=== PATIENT | male | born 1975 | race Caucasian/White ===

== ENCOUNTER 2023-04-12 17:14 | Emergency (ER) | payer BC, SELFPAY ==
[2023-04-12 17:15] VITALS: BP 195/84; PULSE 120; RESP 18; TEMP 36.8; O2SAT 98
--- NOTE | 2023-04-12 17:18 | ECG_ITS ---
Measurements Intervals [place] Rate: 120 P: 52 PA: 130 QRS: 36 QRSD: 86 T: 14 QT: 310 QTc: 438 Interpretive Statements SINUS TACHYCARDIA NONSPECIFIC ST ABNORMALITY LOW-VOLTAGE QRS IN PRECORDIAL LEADS BORDERLINE ECG NO PREVIOUS ECG AVAILABLE FOR COMPARISON Electronically Signed On 04-13-2023 15:04:50 CDT by Josh Perez M.D.
[2023-04-12 17:36] LABS: Basophils Absolute Auto 0.1 K/mm3 (0.0-0.1); Basophils Percent Auto 1.2 % (0.2-1.2); Eosinophils Absolute Auto 0.1 K/mm3 (0-0.3); Eosinophils Percent Auto 0.9 % (0-4.4); Hematocrit 50.2 % (42.0-52.0); Hemoglobin 17.2 g/dL (14.0-18.0); Immature Granulocyte Absolute 0.02 K/mm3 (0.00-0.031); Immature Granulocyte Percent A 0.3 % (0-0.5); Lymphocytes Absolute Auto 1.91 K/mm3 (0.9-3.2); Lymphocytes Percent Auto 24.5 % (18.3-44.2); Mean Corpuscular HGB Conc 34.3 g/dl (32-36); Mean Corpuscular Hemoglobin 28.8 pg (26-34); Mean Corpuscular Volume 84.1 fl (80-100); Mean Platelet Volume 9.5 fl (7.4-10.4); Monocytes Absolute Auto 0.7 K/mm3 (0.1-0.6); Monocytes Percent Auto 8.5 % (2.6-8.5); Neutrophils Absolute Auto 5.1 K/mm3 (1.3-6.7); Neutrophils Percent Auto 64.6 % (45.5-73.1); Platelet Count Result 295 k/mm3 (150-375); Red Blood Count 5.97 M/mm3 (4.6-6.20); Red Cell Distribution Width 12.1 % (11.5-14.5); White Blood Count 7.8 K/mm3 (4.5-10.0)
[2023-04-12 17:48] LABS: Alanine Aminotransferase 32 U/L (6-50); Albumin Level 4.3 g/dL (3.5-5.1); Alkaline Phosphatase 52 U/L (38-126); Anion Gap 7 mmol/L (8-16); Aspartate Amino Transferase 26 U/L (17-59); Bilirubin,Total 0.3 mg/dL (0.2-1.3); Blood Urea Nitrogen 17 mg/dL (9-20); Calcium 9.1 mg/dL (8.4-10.2); Carbon Dioxide 27 mmol/L (22-30); Chloride 101 mmol/L (98-107); Estimated CRCL calculation 76 ml/min; Estimated Glomerular Filt Rate > 60; Glucose 118 mg/dL (65-110); Potassium 3.9 mmol/L (3.4-5.0); Sodium 135 mmol/L (137-145)
[2023-04-12 19:39] VITALS: BP 147/75; PULSE 99; RESP 18; O2SAT 98
--- NOTE | 2023-04-12 20:19 | ED.GENADULT ---
HPI - General Adult General Chief complaint: Recheck/Abnormal Lab/Rx Stated complaint: abnormal calcium and potassium Time Seen by Provider: 04/12/23 19:45 History of Present Illness HPI narrative: This is a 47-year-old type 1 diabetic sent in by his primary care physician for abnormal labs. One week ago the patient had screening lab work that showed a potassium of 7.2 and calcium of 5.5. Patient had no symptoms at that time. Patient try to get and sees primary care physician but his physician is no longer in his hospital network. He was then told to come to the ER to be evaluated. Patient has no complaints this time. He is compliant with his insulin. Related Data Home Medications Medication Instructions Recorded Confirmed atorvastatin 10 mg tablet 10 mg PO DAILY 05/12/22 05/12/22 insulin glargine 100 unit/mL (3 20 unit subcut BID 05/12/22 05/12/22 mL) subcutaneous pen (Lantus Solostar U-100 Insulin) insulin lispro 100 unit/mL 1 sliding scale dose subcut 05/12/22 05/12/22 subcutaneous pen (Humalog KwikPen USEASDIRECTD (U-100) Insulin) olmesartan 20 1 tablet PO DAILY 05/12/22 05/12/22 mg-hydrochlorothiazide 12.5 mg tablet Allergies Allergy/AdvReac Type Severity Reaction Status Date / Time No Known Allergies Allergy Verified 04/12/23 17:17 [facility] Past Medical History Medical History Diabetes Hypertension Family History Family History Father Diabetes mellitus Hypertension Cerebrovascular accident Daughter Diabetes mellitus Sibling Thyroid disorder Social History Social History Smoking status: Never smoker Alcohol intake: never Substance use: never Living arrangements: with family Occupation/Education: occupation Additional occupation/education comments: [employer] Ex[employer] Narrative: APPEARANCE: No apparent distress. pleasant polite Head: atraumatic. EYES: EOMI, NOSE: Atraumatic NECK: Trachea midline RESPIRATORY: No increased rate of breathing, CTAB CARDIOVASCULAR: RRR, no peripheral edema ABDOMINAL: Non-distended soft nontender MUSCULOSKELETAl: No obvious deformities NEURO: Alert. Moving 4/4 extremities SKIN:: Warm, dry. Normal color PSYCHIATRIC: Normal affect Course Vital Signs Vital signs: Vital Signs Temperature 98.2 F 04/12/23 17:15 Pulse Rate 120 H 04/12/23 17:15 Respiratory Rate 18 04/12/23 17:15 Blood Pressure 195/84 H 04/12/23 17:15 Pulse Oximetry 98 04/12/23 17:15 Temperature 98.2 F 04/12/23 17:15 Pulse Rate 99 04/12/23 19:39 Respiratory Rate 18 04/12/23 19:39 Blood Pressure 147/75 H 04/12/23 19:39 Pulse Oximetry 98 04/12/23 19:39 Oxygen Delivery Room Air 04/12/23 19:39 Medical Decision Making MDM Narrative Medical decision making narrative: -Presentation: 47-year-old male presenting for abnormal labs. Repeat lab work here was normal. Patient has stable vital signs and no complaints. Patient be discharged primary care follow-up. 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 Vital Signs Vital Signs: Vital Signs Temperature 98.2 F 04/12/23 17:15 Pulse Rate 120 H 04/12/23 17:15 Respiratory Rate 18 04/12/23 17:15 Blood Pressure 195/84 H 04/12/23 17:15 Pulse Oximetry 98 04/12/23 17:15 Temperature 98.2 F 04/12/23 17:15 Pulse Rate 99 04/12/23 19:39 Respiratory Rate 18 04/12/23 19:39 Blood Pressure 147/75 H 04/12/23 19:39 Pulse Oximetry 98 04/12/23 19:39 Oxygen Delivery
== END 2023-04-12 20:32 | disposition home or self-care (01) ==
PROVIDERS: Emergency Medicine; Emergency Provider Emergency Medicine; PCP Internal Medicine
DX: E11.9 Type 2 diabetes mellitus without complications (principal); I10 Essential (primary) hypertension; Z79.4 Long term (current) use of insulin
CPT/HCPCS: 36415; 80053; 85025; 93005; 99283

== ENCOUNTER 2024-02-13 15:34 | Outpatient (CLI) | payer BC, SELFPAY ==
[2024-02-13 16:11] LABS: Basophils Absolute Auto 0.1 K/mm3 (0.0-0.1); Eosinophils Absolute Auto 0.1 K/mm3 (0-0.3); Eosinophils Percent Auto 1.3 % (0-4.4); Hematocrit 45.3 % (42.0-52.0); Hemoglobin 15.6 g/dL (14.0-18.0); Immature Granulocyte Absolute 0.01 K/mm3 (0.00-0.031); Immature Granulocyte Percent A 0.2 % (0-0.5); Lymphocytes Absolute Auto 1.52 K/mm3 (0.9-3.2); Lymphocytes Percent Auto 24.5 % (18.3-44.2); Mean Corpuscular HGB Conc 34.4 g/dl (32-36); Mean Corpuscular Hemoglobin 29.3 pg (26-34); Mean Platelet Volume 9.7 fl (7.4-10.4); Monocytes Absolute Auto 0.5 K/mm3 (0.1-0.6); Monocytes Percent Auto 8.4 % (2.6-8.5); Neutrophils Percent Auto 64.6 % (45.5-73.1); Platelet Count Result 256 k/mm3 (150-375); Red Blood Count 5.33 M/mm3 (4.6-6.20); Red Cell Distribution Width 12.1 % (11.5-14.5); White Blood Count 6.2 K/mm3 (4.5-10.0)
[2024-02-13 16:46] LABS: Alanine Aminotransferase 33 U/L (6-50); Albumin Level 3.7 g/dL (3.5-5.1); Alkaline Phosphatase 56 U/L (38-126); Anion Gap 6 mmol/L (4-12); Aspartate Amino Transferase 27 U/L (17-59); Bilirubin,Total 0.3 mg/dL (0.2-1.3); Blood Urea Nitrogen 20 mg/dL (9-20); Calcium 8.7 mg/dL (8.4-10.2); Carbon Dioxide 25 mmol/L (22-30); Chloride 100 mmol/L (98-107); Estimated Glomerular Filt Rate 58; Glucose 267 mg/dL (65-110); Potassium 4.4 mmol/L (3.4-5.0); Sodium 131 mmol/L (137-145)
[2024-02-13 16:52] LABS: Immunoglobulin A 111 mg/dL (70-400); Immunoglobulin G 488 mg/dL (700-1600); Immunoglobulin M 61 mg/dL (40-230)
[2024-02-15 02:29] LABS: Protein, Total 5.6 g/dL (6.1-8.1)
[2024-02-15 12:43] LABS: Albumin 3.6 g/dL (3.8-4.8); Alpha 1 Globulin 0.3 g/dL (0.2-0.3); Alpha 2 Globulin 0.6 g/dL (0.5-0.9); Beta 1 Globulin 0.4 g/dL (0.4-0.6); Gamma Globulin 0.5 g/dL (0.8-1.7)
== END 2024-02-13 15:35 | disposition home or self-care (01) ==
PROVIDERS: PCP Internal Medicine; Visit Provider Internal Medicine Hematology & Oncology
DX: D80.1 Nonfamilial hypogammaglobulinemia (principal)
CPT/HCPCS: 36415; 80053; 82784; 83883; 84155; 84165; 85025

== ENCOUNTER 2024-11-16 15:20 | Outpatient (CLI) | payer BC, SELFPAY ==
--- OUTSIDE RECORDS SUMMARY | 2024-11-16 15:25 | XMS_ITS | Clinical Summary ---
Author Organization [facility] Address [address] [place] [id number] Care Team Providers Care Piledriver Carpenter Name Role Phone Lex Zacarias MD Primary Care Provide r Allergies No known active allergies Medications azelastine (ASTELIN) 137 mcg (0.1 %) nasal spray Administer 1 spray into each nostril 2 (two) times a day Use in each nostril as directed 30 mL 2 04/27/20 21 Active montelukast (SINGULAIR) 10 mg tablet Take 1 tablet (10 mg total) by mouth nightly 90 tablet 4 06/02/20 23 Active blood glucose diagnostic (glucose blood) strip To check glucose 5x daily with insulin use 450 each 3 07/18/20 23 Active insulin syringe-needle U-100 (BD Insulin Syringe Ultra-Fine) 1 mL 30 gauge x 1/2 syringe For use 5x daily with insulin 450 each 3 07/18/20 23 Active cetirizine (ZyrTEC) 10 mg tablet Take 1 tablet (10 mg total) by mouth daily 06/24/20 22 Active sildenafiL (VIAGRA) 50 mg tablet 09/01/19 24 Active atorvastatin (LIPITOR) 10 mg tablet TAKE 1 TABLET DAILY 90 tablet 3 01/02/20 24 Active Additional Information Patient taking differently: 40 mg oral Daily, Reported on 11/08/2024 glucagon (Gvoke HypoPen 2-Pack) 1 mg/0.2 mL auto-injector USE DIRECTED FOR LOW BLOOD SUGARS 0.4 mL 1 03/12/20 24 Active blood-glucose sensor (FreeStyle Dagoberto 3 Sensor) device 1 Units every 14 (fourteen) days 6 each 3 05/10/20 24 Active insulin syringe-needle U-100 (BD Insulin Syringe Ultra-Fine) 0.5 mL 30 gauge x 1/2 syringe For use with insulin 4x daily 400 each 2 06/20/20 24 Active blood-glucose sensor device DAGOBERTO 3+ - Use 1 unit every 14 days 6 each 3 07/12/20 24 Active ergocalciferol (VITAMIN D) 50,000 unit capsule TAKE 1 CAPSULE BY MOUTH 1 TIME A WEEK 13 capsule 3 07/29/20 24 Active olmesartan-hyd rochlorothiazi de (BENICAR HCT) 20-12.5 mg per tablet TAKE 1 TABLET DAILY 90 tablet 1 11/06/19 25 Active HumaLOG 100 unit/mL vial for injection INJECT UNDER THE SKIN THREE TIMES DAILY WITH MEALS PER SLIDING SCALE. USE UP TO 100 UNITS PER DAY 90 mL 2 11/06/19 25 Active semaglutide (WEGOVY) 0.25 mg/0.5 mL auto-injector Inject 0.25 mg under the skin every 7 days 2 mL 11/09/19 25 Active insulin glargine (SEMGLEE) 100 unit/mL vial for injection Inject 100 Units under the skin nightly 90 mL 3 11/09/19 25 026 Active sulfamethoxazo le-trimethopri m (BACTRIM DS) 800-160 mg per tablet Take 1 tablet by mouth 2 (two) times a day for 14 days 28 tablet 11/09/19 25 025 Active mupirocin (BACTROBAN) 2 % ointment Apply topically 3 (three) times a day 22 g 11/09/19 25 Active olmesartan-hyd rochlorothiazi de (BENICAR HCT) 20-12.5 mg per tablet TAKE 1 TABLET DAILY 90 tablet 3 08/31/19 24 025 Discontinued lifitegrast (Xiidra) 5 % dropperette 0.1 each (1 drop total) 2 (two) times a day 025 Discontinued(T herapy completed) HumaLOG 100 unit/mL vial for injection INJECT UNDER THE SKIN THREE TIMES DAILY WITH MEALS CALCULATED BY SLIDING SCALE UP TO 100 UNITS PER DAY 90 mL 2 02/10/20 24 025 Discontinued semaglutide (WEGOVY) 0.25 mg/0.5 mL auto-injector Inject 0.5 mL (0.25 mg total) under the skin every 7 days 2 mL 05/10/20 24 025 Discontinued(T herapy completed) insulin glargine 100 unit/mL vial for injection Inject 80 Units under the skin nightly 025 Discontinued Active Problems Problem Noted Date Diagnosed Date Open abdominal wall wound 11/08/2024 Assessment & Plan (11/08/2024 3:40 PM CDT): Bactrim DS BID x 14d Topical Bactroban BID x 1 week, then Medihoney daily until healed Hibiclens wash daily (continue, this he has been doing) He is to communicate with us if not improving Hypoproteinemia 01/02/2024 Erectile dysfunction 08/31/2023 Eczema 12/07/2022 Seasonal allergic rhinitis 12/07/2022 Vitamin D deficiency 12/07/2022 Type 1 diabetes mellitus without complication Assessment & Plan (11/08/2024 3:32 PM CDT): A1C 8.4% Continue glargine 80 units AC continue ICR 1:4 with breakfast/dinner, 1:3 with lunch Continue Dagoberto CGM- have me review in 2 weeks Will retrial Wegovy, he is going to let me know in 2 weeks if he obtained Assessment & Plan (05/10/2024 3:51 PM CDT): A1C 8.5% Continue 70 units basal HS and S/S Continue CGM Labs UTD Is on statin and ARB Will trial Wegovy for weight loss as it appears covered, we discussed communicating with third dose for increase and Dagoberto review Assessment & Plan (11/07/2023 3:25 PM CDT): A1C 8.1% Continue 70 units of semeglee nightly ICR 1:4, add ISF 25 for >150 Labs today Eye exam today November 2023 Assessment & Plan (04/25/2023 3:49 PM CDT): A1C 8.3% Labs due October 2022 Eye exam 11/2022 with mild NPDR Is on 70 units basal, ICR 1:4, will work on entering bolus insulin and have us review dagoberto in 2 weeks Continue CGM Assessment & Plan (11/08/2022 9:31 AM CDT): A1C 7.9% Labs today Eye exam later this month Is on 4 injections daily, 70u basal and 1:4 ICR with 3 meals daily Assessment & Plan (07/09/2022 11:17 AM SAFE DEPOSIT CLERK): A1C 7.6%, not at goal CGM reviewed, encouraged to bolus with first bite of meals Dagoberto 3 sensor x 1 given today to avoid having to scan as this has been an obstacle, will attempt to fill at [facility] Current on eye exam Labs due October 2021 Is on ARB and statin We reviewed protocol for colonoscopy Assessment & Plan (04/27/2021 4:00 PM CDT): A1C 7.1% today, stable Current on eye exam Labs due Sep 2020, including microalbumin Link Dagoberto and notify us to review monthly Assessment & Plan (01/19/2021 2:13 PM CDT): A1C 7.1% today Current on eye exam Had labs last visit, will need microalbumin at next visit Reviewed low treatment and ensured patient had treatment options on hand at home Essential hypertension 10/06/2020 Mixed hyperlipidemia 10/06/2020 Overview (10/06/2020): Same meds Dystrophia unguium 02/18/2020 Sensorineural hearing loss (SNHL) of both ears 1 08/31/2016 Resolved Problems Problem Noted Date Diagnosed Date Resolved Date Nasal congestion 06/03/2021 07/09/2022 Facial pressure 06/03/2021 07/09/2022 Facial swelling 06/03/2021 07/09/2022 Dysfunction of both eustachian tubes 04/27/2021 07/09/2022 Assessment & Plan (04/27/2021 4:01 PM CDT): Add azelastine BID Continue flonase/Zyrtec daily Sensation of plugged ear 07/04/2017 Hearing loss 06/28/2017 07/09/2022 Encounters Date Type Department Care Team Description 11/09/2024 Telephone [facility] [address] [place] [address] Mari Anthony, GABRIELLE PA FOR WEGOVY 0.25MG (FELIX NIKI ([place]: BBMRNCVK)/Wegovy 0.25MG/0.5ML auto-injectors/) 11/08/2024 3:15 PM CDT Office Visit [facility] [place] [address] Mari Anthony, GABRIELLE Type 1 diabetes mellitus without complication (HCC) (Primary Dx); Vitamin D deficiency; Prostate cancer screening; Open wound of abdominal wall, subsequent encounter from Last 3 Months Immunizations Immunization Administration Dates Next Due Influenza, Quadrivalent, Spl it, Preservative Free, Intramuscular 07/01/2021,06/10/2020 Tdap 09/24/2012 Surgical History Surgery Date Site/Laterality Comments REFRACTIVE SURGERY LASIK FLUORO GUIDED INJECTION SHOULDER RIGHT 10/20/2021 [facility] Medical History Medical History Date Comments Personal history of other en docrine, nutritional and metabolic disease History of diabetes mellitus - (Added by ZECHARIAH Conv) Personal history of other di seases of the circulatory system History of hypertension - (A dded by ZECHARIAH Dawson) Hypercholesteremia Hypertension Diabetes mellitus type I (HCC) 1982 Family History Medical History Relation Name Comments Arthritis Father Cancer Father Clotting disorder Father Diabetes Father Heart disease Father Hypertension Father Stroke Father Clotting disorder Mother Heart disease Mother Hypertension Mother Kidney disease Mother Relation Name Status Comments Father Mother Social History Tobacco Use Types Packs/Day Years Used Date Smoking Tobacco: Never Smokeless Tobacco: Never Tobacco Cessation:Counseling Given: Not Answered Alcohol Use Standard Drinks/Week Comments No 0 (1 standard drink = 0.6 oz pur e alcohol) Sex and Gender Information Value Date Recorded Sex Assigned at Not on file Legal Sex Male 8:11 PM SAFE DEPOSIT CLERK Gender Identity Not on file Sexual Orientation Not on file Obstetrics History Last Filed Vital Signs Vital Sign Reading Time Taken Comments Blood Pressure 120/66 11/08/2024 3:08 PM CDT Pulse 106 11/08/2024 3:08 PM CDT Temperature - - Respiratory Rate 16 10/20/2021 3:40 PM SAFE DEPOSIT CLERK Oxygen Saturation 95% 11/08/2024 3:08 PM CDT Inhaled Oxygen Concentration - - Weight 98.4 kg (217 lb) 11/08/2024 3:08 PM CDT Height 175.3 cm (5' 9 ) 11/08/2024 3:08 PM CDT Body Mass Index 32.05 11/08/2024 3:08 PM CDT Plan of Treatment Health Maintenance Due Date Last Done Comments Colon Cancer Screening-Colonoscopy 1973 Depression Screening 1973 Hepatitis C Screening 1973 Dilated Eye Exam 1983 Hepatitis B Screening 1991 Regular Well Visit/Exam 18-64 1991 Pneumococcal vaccine <65 (1 of 2 - PCV) 1992 DTaP/Tdap/Td Vaccine (2 - Td or Tdap) 09/24/2022 09/24/2012 Zoster Vaccine (1 of 2) 2023 Foot Exam 11/09/2023 11/08/2022 Covid-19 Vaccine (4 - 2023-2 5 season) 2024 06/03/2021, 11/21/2020, 10/24/2020 Influenza Vaccine (#1) 2024 2, 07/01/2021, 06/10/2020 Albumin Creatinine Ratio, Urine 11/06/2024 4, 11/08/2022 TSH Level 11/06/2024 11/07/2023, 10/27, 10/29/2021, Additional history exists eGFR 11/06/2024 11/07/2023, 10/27, 10/29/2021, Additional history exists Hemoglobin A1C 05/11/2025 11/08/2024, 04/29, 11/07/2023, Additional history exists Prostate Cancer Screening-PSA 11/06/2025 11/07/2023 Lipid Panel 11/08/2025 11/08/2024, 0308/2023, 07/09/2022, Additional history exists Procedures Procedure Name Priority Date/Time Associated Diagnosis Comments POCT LIPID PANEL Routine 11/08/2024 3:12 PM CDT Type 1 diabetes mellitus without complication (HCC) POCT HEMOGLOBIN A1C Routine 11/08/2024 3 :12 PM CDT Type 1 diabetes mellitus without complication (HCC) POCT GLUCOSE 38712 Routine 11/08/2024 3: 12 PM CDT Type 1 diabetes mellitus without complication (HCC) COMPREHENSIVE METABOLIC PANEL Routine 11/07/2023 3:47 PM CDT Type 1 diabetes mellitus without complication (HCC) ALBUMIN CREATININE RATIO, URINE Routine 11/07/2023 3:47 PM CDT Type 1 diabetes mellitus without complication (HCC) THYROID FUNCTION CASCADE Routine 11/07/2023 3:47 PM CDT Type 1 diabetes mellitus without complication (HCC) PSA SCREEN Routine 11/07/2023 3:47 PM CDT Prostate cancer screening from Last 3 Months or Most Recently Relevant to Health Maintenance Results * POCT glucose (11/08/2024 3:12 PM CDT) Glucose Blood, POC 252 mg/dL Blood 11/08/2024 3:12 PM CDT us Mari Anthony NP POINT OF CARE TEST ORDER TIEN Final Result * POCT hemoglobin A1c (11/08/2024 3:12 PM CDT) Hemoglobin A1C, POC 8.4 4.0 - 5.6 % Blood 11/08/2024 3:12 PM CDT us Mari Anthony NP POINT OF CARE TEST ORDER TIEN Final Result * POCT lipid panel (11/08/2024 3:12 PM CDT) HDL, POC 38 mg/dL Triglycerides, POC 163 mg/dL LDL Cholesterol POC 88 mg/dL Chol/HDL Ratio, POC 4.1 Non-HDL Cholesterol, POC 120 mg/dL Cholesterol Total, POC 158 mg/dL Capillary blood 11/08/2024 3 :12 PM CDT Mari Anthony NP POINT OF CARE TEST ORDER TIEN Final Result * Thyroid Function [place] (11/07/2023 3:47 PM CDT) Pathologist [facility] TSH 1.880 0.450 - 4.500 uIU/mL [facility] - 01 Comment: No apparent thyroid disorder. Additional testing not indicated. In rare instances, Secondary Hypothyroidism as well as Subclinical Hypothyroidism have been reported in some patients with normal TSH values. Blood 11/07/2023 3:47 PM CDT 11/07/2023 Narrative [facility] - 11/08/2023 12:11 PM CDT Performed at: [address] [place] [id number] Digital Art Director: Matty Patiño PhD, Phone: [phone] Mari Anthony PIPE COVERER HELPER LAB BLOOD ORDERABLES Fin al Result [facility] - 01 * PSA screen (11/07/2023 3:47 PM CDT) Pathologist [facility] PSA 0.2 0.0 - 4.0 ng/mL [facility] - 01 Comment: Mj ECLIA methodology. According to the [place] [employer], Serum PSA should decrease and remain at undetectable levels after radical prostatectomy. The AUA defines biochemical recurrence as an initial PSA value 0.2 ng/mL or greater followed by a subsequent confirmatory PSA value 0.2 ng/mL or greater. Values obtained with different assay methods or kits cannot be used interchangeably. Results cannot be interpreted as absolute evidence of the presence or absence of malignant disease. Blood 11/07/2023 3:47 PM CDT 11/07/2023 Narrative [facility] - 11/08/2023 12:11 PM CDT Performed at: [address] [place] [id number] Digital Art Director: Matty Patiño PhD, Phone: [phone] us Mari Anthony PIPE COVERER HELPER LAB BLOOD ORDERABLES Fin al Result Performing Organization Address [facility] Co de Phone Number [facility] - * Albumin Creatinine Ratio, Urine (11/07/2023 3:47 PM CDT) Creatinine ur 191.6 Not Estab. mg/dL [facility] - 01 Microalbumin, ur <3.0 Not Estab. ug/mL [facility] - 01 Microalbumin/cre at ratio <2 0 - 29 mg/g creat [facility] - 01 Comment: Normal: 0 - 29 Moderately increased: 30 - 300 Severely increased: >300 Urine 11/07/2023 3:47 PM CDT 11/07/2023 Narrative [facility] - 11/08/2023 12:11 PM CDT Performed at: [address] [id number] Digital Art Director: Matty Patiño PhD, Phone: [phone] us Mari Anthony NP LAB URINE ORDERABLES Fin al Result Performing Organization Address [facility] Co de Phone Number [facility] - * (ABNORMAL) Comprehensive metabolic panel (11/07/2023 3:47 PM CDT) Glucose 125(H) 70 - 99 mg/dL [facility] - 01 BUN 18 6 - 24 mg/dL [facility] - 01 Creatinine, Serum 1.37(H) 0.76 - 1.27 mg/dL [facility] - 01 eGFR 63 >59 mL/min/1.7 3 [facility] - 01 BUN/creat ratio 13 9 - 20 [facility] - 01 Sodium 136 134 - 144 mmol/L [facility] - 01 Potassium, sr 4.5 3.5 - 5.2 mmol/L [facility] - 01 Chloride 99 96 - 106 mmol/L [facility] - 01 CO2 24 20 - 29 mmol/L [facility] - 01 Calcium 10.4(H) 8.7 - 10.2 mg/dL [facility] - 01 Protein, sr 6.6 6.0 - 8.5 g/dL [facility] - 01 Albumin 4.4 4.1 - 5.1 g/dL [facility] - 01 Globulin, Total 2.2 1.5 - 4.5 g/dL [facility] - 01 A/G Ratio 2.0 1.2 - 2.2 [facility] - 01 Bilirubin, Total 0.3 0.0 - 1.2 mg/dL [facility] - 01 Alk phos 63 44 - 121 IU/L [facility] - 01 AST 14 0 - 40 IU/L [facility] - 01 ALT 27 0 - 44 IU/L [facility] - 01 Blood 11/07/2023 3:47 PM CDT 11/07/2023 Narrative [facility] - 11/08/2023 12:11 PM CDT Performed at: [facility] [place] [id number] Digital Art Director: Matty Patiño PhD, Phone: [phone] Mari Anthony PIPE COVERER HELPER LAB BLOOD ORDERABLES Fin al Result Performing Organization Address City/State/[facility] Co de Phone Number [facility] - 01 from Last 3 Months or Most Recently Relevant to Health Maintenance Insurance [facility] CHOICE PLUS BLUE ACC CHOICE OOS Care Teams Piledriver Carpenter Relationship Specialty Start Date End Date Lex Zacarias MD [address] [facility] [address] [place] [address] PCP - General Internal Medicine 07/09/22
--- OUTSIDE RECORDS SUMMARY | 2024-11-16 15:25 | XMS_ITS | Referral Summary ---
Author Organization [facility] Address [address] [place] [address] Care Team Providers Care Cork Compounder Name Role Phone Lex Zacarias MD Primary Care Provide r Encounters Date Type Department Care Team Description 11/09/2024 Telephone [facility] [address] [facility] [address] [place] [address] Mari Anthony NP PA FOR WEGOVY 0.25MG (FELIX NIKI ([place]: [id number])/Wegovy 0.25MG/0.5ML auto-injectors/) 11/08/2024 3:15 PM CDT Office Visit [facility] [address] [facility] [address] [place] [address] Mari Anthony NP Type 1 diabetes mellitus without complication (HCC) (Primary Dx); Vitamin D deficiency; Prostate cancer screening; Open wound of abdominal wall, subsequent encounter from Last 3 Months Allergies No known active allergies Medications azelastine [...] me review in 2 weeks Will retrial Jeff, he is going to let me know [...] daily Assessment & Plan (07/09/2022 11:17 AM POISING INSPECTOR): A1C 7.6%, not at goal CGM reviewed, [...] plugged ear 07/04/2017 Hearing loss 06/28/2017 07/09/2022 Immunizations Immunization Administration Dates Next Due Influenza, Quadrivalent, Spl it, Preservative Free, Intramuscular 07/01/2021,06/10/2020 Tdap 09/24/2012 Social History Tobacco Use Types Packs/Day Years Used Date Smoking Tobacco: Never Smokeless Tobacco: Never Tobacco Cessation:Counseling Given: Not Answered Alcohol Use Standard Drinks/Week Comments No 0 (1 standard drink = 0.6 oz pur e alcohol) Sex and Gender Information Value Date Recorded Sex Assigned at Not on file Legal Sex Male 8:11 PM POISING INSPECTOR Gender Identity Not on file Sexual Orientation Not on file Last Filed Vital Signs Vital Sign Reading Time Taken Comments Blood Pressure 120/66 11/08/2024 3:08 PM CDT Pulse 106 11/08/2024 3:08 PM CDT Temperature - - Respiratory Rate 16 10/20/2021 3:40 PM POISING INSPECTOR Oxygen Saturation 95% 11/08/2024 3:08 PM CDT Inhaled Oxygen Concentration - - Weight 98.4 kg (217 lb) 11/08/2024 3:08 PM CDT Height 175.3 cm (5' 9 ) 11/08/2024 3:08 PM CDT Body Mass Index 32.05 11/08/2024 3:08 PM CDT Plan of Treatment Not on file Procedures Procedure Name Priority Date/Time Associated Diagnosis Comments POCT LIPID PANEL Routine 11/08/2024 3:12 PM CDT Type 1 diabetes mellitus without complication (HCC) POCT HEMOGLOBIN A1C Routine 11/08/2024 3 :12 PM CDT Type 1 diabetes mellitus without complication (HCC) POCT GLUCOSE 23432 Routine 11/08/2024 3: 12 PM CDT Type [...] 252 mg/dL Blood 11/08/2024 3:12 PM CDT Mari Anthony NP POINT OF [...] ORDER TIEN Final Result * Thyroid Function [place] (11/07/2023 3:47 PM CDT) Pathologist [facility] TSH 1.880 0.450 - 4.500 uIU/mL [facility] - 01 Comment: No apparent thyroid disorder. Additional testing not indicated. In rare instances, Secondary Hypothyroidism as well as Subclinical Hypothyroidism have been reported in some patients with normal TSH values. Blood 11/07/2023 3:47 PM CDT 11/07/2023 Narrative [facility] - 11/08/2023 12:11 PM CDT Performed at: [address] [place] [id number] Cost Estimating Clerk: Matty Patiño PhD, Phone: [phone] Mari Anthony NP LAB BLOOD ORDERABLES Fin al Result [facility] - 01 * PSA screen (11/07/2023 3:47 PM CDT) PSA 0.2 0.0 - 4.0 ng/mL [facility] - 01 Comment: Mj ECLIA methodology. According to the [employer], Serum PSA should decrease and [...] - 11/08/2023 12:11 PM CDT Performed at: [address] [place] [address] [id number] Cost Estimating Clerk: Matty Patiño PhD, Phone: [phone] us Mari Anthony DRIVER LICENSE TECHNICIAN LAB BLOOD ORDERABLES Fin al Result Performing Organization Address [facility] de Phone Number [facility] - * Albumin Creatinine Ratio, Urine [...] - 11/08/2023 12:11 PM CDT Performed at: [address] [id number] Cost Estimating Clerk: Matty Patiño PhD, Phone: [phone] us Mari Anthony DRIVER LICENSE TECHNICIAN LAB URINE ORDERABLES Fin al Result Performing Organization Address [facility] de Phone Number [facility] - * (ABNORMAL) Comprehensive metabolic panel [...] 11/08/2023 12:11 PM CDT Performed at: [facility] [place] [id number] Cost Estimating Clerk: Matty Patiño PhD, Phone: [phone] us Mari Anthony DRIVER LICENSE TECHNICIAN LAB BLOOD ORDERABLES Fin al Result Performing Organization Address City/State/[facility] Co de Phone Number [facility] - 01 from Last 3 Months or Most Recently Relevant to Health Maintenance Insurance [facility] CHOICE PLUS BLUE ACC CHOICE OOS ANTHEM ACCESS CHOICE Care Teams Cork Compounder Relationship Specialty Start Date End Date Lex Zacarias MD [address] [facility] [address] [place] [address] PCP - General Internal Medicine 07/09/22
--- OUTSIDE RECORDS SUMMARY | 2024-11-16 15:25 | XMS_ITS | Clinical Summary ---
Author Organization [facility] Address [address] [facility] [address] Care Team Providers Care Adobe Cq Developer Name Role Phone Barry Zacarias MD Primary Care Provider Allergies No known active allergies Medications atorvastatin (LIPITOR) 10 mg tablet Take 1 Tablet by mouth daily. 4 Active cetirizine (ZyrTEC) 10 mg tablet Take 10 mg by mouth daily. 2 Active insulin lispro (HumaLOG U-100 Insulin) 100 unit/mL vial INJECT UNDER THE SKIN THREE TIMES DAILY WITH MEALS CALCULATED BY SLIDING SCALE UP TO 100 UNITS PER DAY 4 Active ergocalciferol (VITAMIN D2) 50,000 unit capsule Take 50,000 Units by mouth. 4 01/04/20 25 Active olmesartan-hydr oCHLOROthiazide (BENICAR-HCT) 20-12.5 mg tablet Take 1 Tablet by mouth daily. 4 Active insulin glargine (LANTUS) 100 unit/mL injection Inject by subcutaneous injection. Active Active Problems No known active problems Encounters Date Type Department Care Team Description 11/06/2024 External Device Data [facility] ABSTRACTION Provider, Abstract 11/06/2024 External Device Data [facility] ABSTRACTION Provider, Abstract 11/03/2024 External Device Data [facility] ABSTRACTION Provider, Abstract 11/02/2024 External Device Data [facility]STRACTION Provider, Abstract 10/23/2024 External Device Data [facility] ABSTRACTION Provider, Abstract from Last 3 Months Family History Medical History Relation Name Comments Heart Disease Brother 1 Heart Disease Brother 2 No Known Problems Child 1 Diabetes Child 2 Diabetes Father Heart Disease Mother Relation Name Status Comments Brother 1 Alive Brother 2 Alive Child 1 Alive Child 2 Alive Father Mother Alive Social History Tobacco Use Types Packs/Day Years Used Date Smoking Tobacco: Never Tobacco Cessation:Counseling Given: Not Answered Alcohol Use Standard Drinks/Week Comments Never 0 (1 standard drink = 0.6 oz pur e alcohol) Sex and Gender Information Value Date Recorded Sex Assigned at Not on file Legal Sex Male 11:12 AM CDT Gender Identity Not on file Sexual Orientation Not on file Last Filed Vital Signs Vital Sign Reading Time Taken Comments Blood Pressure 110/60 02/13/2024 2:57 PM CDT Pulse 87 02/13/2024 2:57 PM CDT Temperature 36.7 C (98 F) 02/13/2024 2:57 PM CDT Respiratory Rate 16 02/13/2024 2:57 PM CDT Oxygen Saturation 95% 02/13/2024 2:57 PM CDT Inhaled Oxygen Concentration - - Weight 96.6 kg (213 lb) 02/13/2024 2:57 PM CDT Height 175.3 cm (5' 9 ) 02/13/2024 2:57 PM CDT Body Mass Index 31.45 02/13/2024 2:57 PM CDT Plan of Treatment Upcoming Encounters Date Type Department Care Team (Late st Contact Info) Description 11/27/2024 2:30 PM CDT Office Visit [facility] - [place] [address] [facility] [address] [place] [address] Milad Almendarez MD [address] [facility] [address] [place] [address] Health Maintenance Due Date Last Done Comments DIABETES ANNUAL RETINAL EXAM 1991 DIABETES MICROALBUMIN ANNUAL SCREEN 1991 LDL CHOLESTEROL ANNUAL 1991 HEPATITIS B VACCINES (1 of 3 - 19+ 3-dose series) 1992 ZOSTER VACCINE (1 of 2) 1992 COLORECTAL SCREENING 2018 Colorectal Cancer Screening 2018 FIT-DNA Q 3 years 2018 FIT/FOBT Q 1 year 2018 Flex Sig/CT Colonography Q 5 years 2018 DTAP/TDAP/TD VACCINES (2 - T d or Tdap) 09/24/2022 09/24/2012 DIABETES ANNUAL FOOT EXAM 11/09/2023 11/08/2022 INFLUENZA VACCINE (#1) 2024 2, 07/01/2021, 06/10/2020 DIABETES HBA1C Q 6 MONTHS 05/09/2024 11/07/2023 Preventative Visit- Commercial 08/29/2024 Insurance Care Teams Adobe Cq Developer Relationship Specialty Start Date End Date Barry Zacarias MD PCP - General Internal Medicine 01/24/24
--- OUTSIDE RECORDS SUMMARY | 2024-11-16 15:25 | XMS_ITS | Data Portability ---
Author Organization [place] - [facility] [employer], Main Office Address [address] [place] [address] Care Team Providers Care Transfer Professor Name Role Phone JORGE KULKARNI Sharepoint Web Developer RAPHAEL AVILES Orthopedic Surgeon BARRY ZACARIAS Primary Care Provider [phone] MILAD ALMENDAREZ Naphthalene Operator [facility] Trim Machine Operator [phone] GIGI MEYERS Stitch Marker [phone] Assessment Encounter Date Assessment Date Assessment LastModified by Organization Details LastModified Time 01/03/2024 01/03/2024 12/30/2023: A1C 8.0 Gluc 253, TP 6.0, Glob 2.0 Not available 01/02/2024 18:52:16 07/10/2024 07/10/2024 12/30/2023: A1C 8.0 Gluc 253, TP 6.0, Glob 2.0 07/06/2024: PSA 0.24 A1C 8.5 Gluc 125, Glob 2.1 Chol 218, LDL 152 H/H 17.3/50.7 Not available 07/10/2024 17:49:41 10/11/2024 10/11/2024 12/30/2023: A1C 8.0 Gluc 253, TP 6.0, Glob 2.0 07/06/2024: PSA 0.24 A1C 8.5 Gluc 125, Glob 2.1 Chol 218, LDL 152 H/H 17.3/50.7 10/09/2024: A1C 8.4 Gluc 176, TP 6.2L LDL 111 H/H16.6/48.4 Not available 10/11/2024 17:35:22 Plan of Treatment Reminders Order Date Submit Date Provider Last Modified By Organization Details Last Modified Time Details Appointments Any 15 2024 04:00P Naveen farley MD Not available Not available Not available Lab vitamin D, 25-hydrox y, total, serum [address] (Lab), [address] [place], [address], 10/11/2024 17:35:05 microalbu min, urine [address] (Lab), [address] [place], [address], 10/11/2024 17:35:05 glycohemo globin, total, blood [address] (Lab), [address] [place], [address], 10/11/2024 17:35:05 lipid panel, serum [address] (Lab), [address] [place], [address], 10/11/2024 17:35:03 TSH, serum or plasma [address] (Lab), [address] [place], [address], 10/11/2024 17:35:04 CMP, serum or plasma [address] (Lab), [address] [place], [address], 10/11/2024 17:35:04 CBC w/ auto diff [address] (Lab), [address] [place], [address], 10/11/2024 17:35:04 vitamin D, 25-hydrox y, total, serum [address] (Lab), [address] [place], [address], 07/10/2024 17:40:27 microalbu min, urine 2023 024 [facility] (Lab), [address] [place], [address], 10/09/2024 15:00:51 glycohemo globin, total, blood 2023 [facility] (Lab), [address] [place], [address], 10/09/2024 18:44:27 lipid panel, serum 2023 024 [facility] (Lab), [address] [place], [address], 10/09/2024 15:03:09 TSH, serum or plasma 2023 024 [facility] (Lab), [address] [place], [address], 10/09/2024 17:09:50 CMP, serum or plasma 2023 024 [facility] (Lab), [address] [place], [address], 10/09/2024 15:03:15 CBC w/ auto diff 2023 024 [facility] (Lab), [address] [place], [address], 10/09/2024 14:55:46 PSA, total, serum or plasma 2023 024 [facility] (Lab), [address] [place], [address], 07/06/2024 16:23:59 vitamin D, 25-hydrox y, total, serum [address] (Lab), [address] [place], [address], 07/09/2024 09:46:20 microalbu min, urine [address] (Lab), [address] [place], [address], 07/09/2024 09:47:16 glycohemo globin, total, blood 2023 024 [facility] (Lab), [address] [place], [address], 07/06/2024 21:16:24 lipid panel, serum 2023 024 [facility] (Lab), [address] [place], [address], 07/06/2024 15:48:24 TSH, serum or plasma 2023 024 [facility] (Lab), [address] [place], [address], 07/06/2024 16:23:54 CMP, serum or plasma 2023 024 [facility] (Lab), [address] [place], [address], 02/13/2024 18:03:20 CBC w/ auto diff 2023 024 [facility] (Lab), [address] [place], [address], 02/13/2024 18:03:20 vitamin D, 25-hydrox y, total, serum [email or web address] (Lab), [address] [place], [address], 02/28/2024 10:07:34 microalbu min, urine 2023 024 [facility] (Lab), [address] [place], [address], 01/02/2024 17:14:13 glycohemo globin, total, blood 2023 024 [facility] (Lab), [address] [place], [address], 12/30/2023 21:31:06 lipid panel, serum 2023 024 [facility] (Lab), [address] [place], [address], 12/30/2023 19:07:54 TSH, serum or plasma 2023 024 [facility] (Lab), [address] [place], [address], 12/30/2023 19:36:23 CMP, serum or plasma 2023 024 [facility] (Lab), [address] [place], [address], 12/30/2023 19:08:09 CBC w/ auto diff 2023 024 [facility] (Lab), [address] [place], [address], 12/30/2023 17:06:52 Referral podiatris t referral - Please call patient to schedule an appointme nt. Thank you. 2024 025 ERNESTINE Lucas DPM, [address] [place], [address], 10/12/2024 10:20:42 endocrino logy referral - Please call patient to schedule an appointme nt. Thank you. 2024 025 ERNESTINE Handy MD, [address] [place], [address], 10/12/2024 10:40:30 podiatris t referral - Please call patient to schedule. 2023 024 [email or web address] Tanisha Lucas DPM, [address] [place], [address], 10/09/2024 17:15:43 endocrino logy referral 2023 024 [email or web address] Chuy Handy MD, [address], [address] [place], [address], 07/11/2024 14:22:23 hematolog ist referral 2023 024 [email or web address] Milad Almendarez MD, [address], [place], [address], 07/11/2024 14:21:45 general surgeon referral - Please call patient to schedule. 2023 024 LATRICE Bean MD, [address] [facility] [address], [place], [address], 07/24/2024 15:35:42 podiatris t referral 2023 024 [email or web address] Tanisha Lucas DPM, [address] [place], [address], 07/09/2024 09:47:30 endocrino logy referral 2023 024 [email or web address] Chuy Handy MD, [address], [address] [place], [address], 07/09/2024 09:47:31 hematolog ist referral 2023 024 LATRICE Almendarez MD, [address], [place], [address], 02/23/2024 11:37:05 podiatris t referral 2023 024 Tanisha Lucas DP, [address] [place], [address], 08/30/2024 08:49:01 endocrino logy referral 2023 024 [email or web address] Chuy Handy MD, [address] [facility], [address] [place] [address], [address], 03/27/2024 08:40:54 Procedures None recorded. Surgeries None recorded. Imaging None recorded. Medication Orders atorvasta tin 40 mg tablet 2024 025 gem caraballo [facility][id number], [address] [place], [place], [id number], 10/19/2024 10:12:58 cephalexi n 500 mg capsule 2023 024 [facility] #[id number], [address] [place], [place], [id number], 10/11/2024 17:06:30 atorvasta tin 40 mg tablet 2023 024 [facility] #[id number], [address] [place], [place], [id number], 07/10/2024 17:40:23 cephalexi n 500 mg capsule 2023 [facility], [address] [place], [place], [id number], 10/11/2024 17:06:30 sildenafi l 50 mg tablet 2023 024 LATRICE [facility], [address] [place] [address], [place], [address], 09/01/2023 17:21:[address] 10 mg tablet 2023 024 [facility], [address] [place] [address], [address], 01/03/2024 17:10:28 Patient TargetsNo targets recorded. Patient Instructions Encounter Date Encounter Id Patient Instructions Last Modified By Organization Details Last Modified Time 09/01/2023 [id number] diabetic eye exam* LATRICE Not available 02/20/2024 07:13:14 07/10/2024 [id number] diabetic eye exam* [email or web address] Not available 07/10/2024 17:40:28 10/11/2024 [id number] diabetic eye exam* [email or web address] Not available 10/11/2024 17:35:05 Reason for Referral Inspection Manager Referral for Type 1 diabetes mellitus Referring Physician: Barry Zacarias Internal Medicine, Encounter Date: 09/01/2023 Endocrinology Referral for T ype 1 diabetes mellitus Referring Physician: Jerrica Celaya Medicine, Encounter Date: 09/01/2023 Inspection Manager Referral for Type 1 diabetes mellitus Referring Physician: Jerrica Celaya Medicine, Encounter Date: 01/03/2024 Endocrinology Referral for T ype 1 diabetes mellitus Referring Physician: Jerrica Celaya Medicine, Encounter Date: 01/03/2024 Referring Physician: Jerrica Celaya Medicine, Encounter Date: 01/03/2024 General Surgeon Referral for Folliculitis Please call patient to schedule. Referring Physician: Jerrica Celaya Medicine, Encounter Date: 07/04/2024 Inspection Manager Referral for Type 1 diabetes mellitus Please call patient to schedule. Referring Physician: Jerrica Celaya Medicine, Encounter Date: 07/10/2024 Endocrinology Referral for T ype 1 diabetes mellitus Referring Physician: Barry Zacarias Internal Medicine, Encounter Date: 07/10/2024 Referring Physician: Barry Zacarias Internal Medicine, Encounter Date: 07/10/2024 Inspection Manager Referral for Type 1 diabetes mellitus Please call patient to schedule an appointment. Thank you. Referring Physician: Barry Zacarias Internal Medicine, Encounter Date: 10/11/2024 Endocrinology Referral for T ype 1 diabetes mellitus Please call patient to schedule an appointment. Thank you. Referring Physician: Barry Zacarias Internal Medicine, Encounter Date: 10/11/2024 Results Created Date Observation Date Name Description Value Unit Range Abnormal Flag Note LastModifiedBy Organization Detail LastModifiedTime 12/30/19 24 12/30/2023 CBC/C OMPLE TE BLD COUNT W/DIF F white blood cells 5.6 x10'3 /uL 4.2-10 .8 Not Available [facility] (Lab) [address] [place], [address], 12/30/2023 17:06:52 12/30/19 24 12/30/2023 CBC/C OMPLE TE BLD COUNT W/DIF F red blood cells 5.57 x10'6 /uL 4.10-5 .80 Not Available [facility] (Lab) [address] [place], [address], 12/30/2023 17:06:52 12/30/19 24 12/30/2023 CBC/C OMPLE TE BLD COUNT W/DIF F hemoglobin 16.4 g/dL 13.2-1 7.0 Not Available [facility] (Lab) [address] [place], [address], 12/30/2023 17:06:52 12/30/19 24 12/30/2023 CBC/C OMPLE TE BLD COUNT W/DIF F hematocrit 47.7 % 39.3-5 0.0 Not Available [facility] (Lab) [address] [facility] [place], [address], 12/30/2023 17:06:52 12/30/19 24 12/30/2023 CBC/C OMPLE TE BLD COUNT W/DIF F mean red cell volume 85.6 fL 80.0-9 7.0 Not Available [facility] (Lab) [address] [facility] [place], [address], 12/30/2023 17:06:52 12/30/19 24 12/30/2023 CBC/C OMPLE TE BLD COUNT W/DIF F mean red cell hemoglobin 29.4 pg 27.0-3 3.0 Not Available [facility] (Lab) [address] [place], [address], 12/30/2023 17:06:52 12/30/19 24 12/30/2023 CBC/C OMPLE TE BLD COUNT W/DIF F mean RBC HGB concentratio n 34.4 g/dL 31.0-3 6.0 Not Available [facility] (Lab) [address] [place], [address], 12/30/2023 17:06:52 12/30/19 24 12/30/2023 CBC/C OMPLE TE BLD COUNT W/DIF F red cell distribution width 12.0 % 11.8-1 5.5 Not Available [facility] (Lab) [address] [place], [address], 12/30/2023 17:06:52 12/30/19 24 12/30/2023 CBC/C OMPLE TE BLD COUNT W/DIF F platelets 249 x10'3 /uL 150-40 0 Not Available [facility] (Lab) [address] [place], [address], 12/30/2023 17:06:52 12/30/19 24 12/30/2023 CBC/C OMPLE TE BLD COUNT W/DIF F mean platelet volume 10.5 fL 9.0-12 .4 Not Available [facility] (Lab) [address] [place], [address], 12/30/2023 17:06:52 12/30/19 24 12/30/2023 CBC/C OMPLE TE BLD COUNT W/DIF F neutrophils 58.4 % 39.0-7 2.0 Not Available [facility] (Lab) [address] [place], [address], 12/30/2023 17:06:52 12/30/19 24 12/30/2023 CBC/C OMPLE TE BLD COUNT W/DIF F lymphocytes 29.7 % 16.0-4 7.0 Not Available [facility] (Lab) [address] [place], [address], 12/30/2023 17:06:52 12/30/19 24 12/30/2023 CBC/C OMPLE TE BLD COUNT W/DIF F monocytes 8.6 % 5.0-12 .0 Not Available [facility] (Lab) [address] [place], [address], 12/30/2023 17:06:52 12/30/19 24 12/30/2023 CBC/C OMPLE TE BLD COUNT W/DIF F eosinophils 2.0 % 1.0-7. 0 Not Available [facility] (Lab) [address] [place], [address], 12/30/2023 17:06:52 12/30/19 24 12/30/2023 CBC/C OMPLE TE BLD COUNT W/DIF F basophils 1.1 % 0.0-2. 0 Not Available [facility] (Lab) [address] [place], [address], 12/30/2023 17:06:52 12/30/19 24 12/30/2023 CBC/C OMPLE TE BLD COUNT W/DIF F immature granulocytes 0.2 % 0.00-0 .50 Not Available [facility] (Lab) [address] [place], [address], 12/30/2023 17:06:52 12/30/19 24 12/30/2023 CBC/C OMPLE TE BLD COUNT W/DIF F neutrophils, absolute count 3.27 x10'3 /uL 1.5-8. 0 Not Available [facility] (Lab) [address] [place], [address], 12/30/2023 17:06:52 12/30/19 24 12/30/2023 CBC/C OMPLE TE BLD COUNT W/DIF F lymphocytes, absolute count 1.66 x10'3 /uL 1.07-3 .43 Not Available [facility] (Lab) [address] [place], [address], 12/30/2023 17:06:52 12/30/19 24 12/30/2023 CBC/C OMPLE TE BLD COUNT W/DIF F monocytes, absolute count 0.48 x10'3 /uL 0.29-0 .99 Not Available [facility] (Lab) [address] [place], [address], 12/30/2023 17:06:52 12/30/19 24 12/30/2023 CBC/C OMPLE TE BLD COUNT W/DIF F eosinophils, absolute count 0.11 x10'3 /uL 0.02-0 .53 Not Available [facility] (Lab) [address] [place], [address], 12/30/2023 17:06:52 12/30/19 24 12/30/2023 CBC/C OMPLE TE BLD COUNT W/DIF F basophils, absolute count 0.06 x10'3 /uL 0.01-0 .08 Not Available [facility] (Lab) [address] [place], [address], 12/30/2023 17:06:52 12/30/19 24 12/30/2023 CBC/C OMPLE TE BLD COUNT W/DIF F immature granulocytes ,absolute 0.01 x10'3 /uL 0.00-0 .05 Not Available [facility] (Lab) [address] [place], [address], 12/30/2023 17:06:52 12/30/19 24 12/30/2023 CBC/C OMPLE TE BLD COUNT W/DIF F nucleated red blood cells 0.0 % -0 Not Available [facility] (Lab) [address] [place], [address], 12/30/2023 17:06:52 12/30/19 24 12/30/2023 CBC/C OMPLE TE BLD COUNT W/DIF F NRBC# 0.00 x10'3 /uL Not Available [facility] (Lab) [address] [place], [address], 12/30/2023 17:06:52 12/30/19 24 12/30/2023 LIPID PANEL cholesterol 165 mg/dL 140-19 9 NIH ARACELI NSUS RECOM MENDA TION FOR SIRENA STERO L: ADULT CHILD LOW RISK: <200 <170 BORDE RLINE : <200- 239 ----- HIGH RISK: >240 >200 Not Available [facility] (Lab) [address] [place], [address], 12/30/2023 19:07:53 12/30/19 24 12/30/2023 LIPID PANEL triglyceride s 116 mg/dL 0-150 NIH ARACELI NSUS REPOR T RECOM MENDA TION FOR TRIGL YCERI JOY: ADULT CHILD LOW RISK: <150 ----- BODER LINE: 150-1 99 ----- HIGH RISK: >200 ----- Not Available [facility] (Lab) [address] [place], [address], 12/30/2023 19:07:53 12/30/19 24 12/30/2023 LIPID PANEL HDL cholesterol 47 mg/dL 40- Not Available [facility] (Lab) [address] [place], [address], 12/30/2023 19:07:53 12/30/19 24 12/30/2023 LIPID PANEL LDL cholesterol, calculated 95 mg/dL 0-130 NIH ARACELI NSUS REPOR T RECOM MENDA TIONS FOR LDL: ADULT CHILD LOW RISK <130 <110 (OPTI MAL LDL) <100 ----- BORDE RLINE : 130-1 59 ----- HIGH RISK: >160 >130 A TRIGL YCERI DE RESUL T >400 INVAL IDATE S THE CALCU LATIO N FOR LDL FRACT IONAT ION - THE LDL RESUL T WILL NOT BE REPOR HAYDER. Not Available [facility] (Lab) [address] [place], [address], 12/30/2023 19:07:53 12/30/19 24 12/30/2023 COMPR EHENS MERON METAB OLIC PANEL sodium 133 mmol/ L 137-14 5 low Not Available [facility] (Lab) [address] [place], [address], 12/30/2023 19:08:09 12/30/19 24 12/30/2023 COMPR EHENS MERON METAB OLIC PANEL potassium 4.4 mmol/ L 3.5-5. 1 Not Available [facility] (Lab) [address] [place], [address], 12/30/2023 19:08:09 12/30/19 24 12/30/2023 COMPR EHENS MERON METAB OLIC PANEL chloride 101 mmol/ L 98-107 Not Available [facility] (Lab) [address] [place], [address], 12/30/2023 19:08:09 12/30/19 24 12/30/2023 COMPR EHENS MERON METAB OLIC PANEL carbon dioxide 27 mmol/ L 22-30 Not Available [facility] (Lab) [address] [place], [address], 12/30/2023 19:08:09 12/30/19 24 12/30/2023 COMPR EHENS MERON METAB OLIC PANEL anion gap 9.4 mmol/ L 14-22 low Not Available [facility] (Lab) [address] [place], [address], 12/30/2023 19:08:09 12/30/19 24 12/30/2023 COMPR EHENS MERON METAB OLIC PANEL glucose 253 mg/dL 70-99 high Not Available [facility] (Lab) [address] [place], [address], 12/30/2023 19:08:09 12/30/19 24 12/30/2023 COMPR EHENS MERON METAB OLIC PANEL BUN 17 mg/dL 8-19 Not Available [facility] (Lab) [address] [place], [address], 12/30/2023 19:08:09 12/30/19 24 12/30/2023 COMPR EHENS MERON METAB OLIC PANEL creatinine 1.16 mg/dL 0.66-1 .25 Not Available [facility] (Lab) [address] [place], [address], 12/30/2023 19:08:09 12/30/19 24 12/30/2023 COMPR EHENS MERON METAB OLIC PANEL GFR >60 Refer ence Range : Bent ge GFR Healt hy Adult : >60 mL/mi n/1.7 3 m2 Chron ic Kidne y Disea se: 15-60 mL/mi n/1.7 3 m2 Kidne y Failu re: <15/m L/min /1.73 m2 www.n iddk. nih.g ov The MDRD study equat ion has not been valid ated in child natividad <18 years of age; pregn ant women ; the elder ly >85 years of age; or in some racia l or ethni c subgr oups, such as Hispa nics. Outsi de the valid ated rosalinda eters , estim ated GFR is less accur ate, requi ring clini andrea judgm ent on a case- by-ca se basis . Clini andrea inter preta tion for other races and ages must be made by the clini javy. The MDRD study equat ion has not been valid ated for the evalu ation of serum creat inine relat ed to nutri constanza l statu s or medic ation usage . For perso ns <18 years of age, a pedia tric GFR calcu lator is avail able on the [facility] websi te: https ://kiko w.kid lilliam.o rg/pr ofess ional s/kdo qi/gf r_cal culat or Not Available [facility] (Lab) [address] [place], [address], 12/30/2023 19:08:09 12/30/19 24 12/30/2023 COMPR EHENS MERON METAB OLIC PANEL alkaline phosphatase 57 U/L 38-126 Not Available [facility] (Lab) [address] [place], [address], 12/30/2023 19:08:09 12/30/19 24 12/30/2023 COMPR EHENS MERON METAB OLIC PANEL alanine aminotransfe rase 32 U/L 0-50 Not Available [facility] (Lab) [address] [place], [address], 12/30/2023 19:08:09 12/30/19 24 12/30/2023 COMPR EHENS MERON METAB OLIC PANEL aspartate aminotransfe rase 28 U/L 15-46 Not Available [facility] (Lab) [address] [place], [address], 12/30/2023 19:08:09 12/30/19 24 12/30/2023 COMPR EHENS MERON METAB OLIC PANEL bilirubin, total 0.40 mg/dL 0.20-1 .30 Not Available [facility] (Lab) [address] [place], [address], 12/30/2023 19:08:09 12/30/19 24 12/30/2023 COMPR EHENS MERON METAB OLIC PANEL calcium 9.5 mg/dL 8.4-10 .2 Not Available [facility] (Lab) [address] [place], [address], 12/30/2023 19:08:09 12/30/19 24 12/30/2023 COMPR EHENS MERON METAB OLIC PANEL total protein 6.0 g/dL 6.3-8. 2 low Not Available [facility] (Lab) [address] [place], [address], 12/30/2023 19:08:09 12/30/19 24 12/30/2023 COMPR EHENS MERON METAB OLIC PANEL albumin 4.0 g/dL 3.4-5. 0 Not Available [facility] (Lab) [address] [place], [address], 12/30/2023 19:08:09 12/30/19 24 12/30/2023 COMPR EHENS MERON METAB OLIC PANEL globulin 2.0 g/dL 2.6-4. 2 low Not Available [facility] (Lab) [address] [place], [address], 12/30/2023 19:08:09 12/30/19 24 12/30/2023 COMPR EHENS MERON METAB OLIC PANEL A/G ratio 2.0 ratio 1.0-2. 0 Not Available [facility] (Lab) [address] [place], [address], 12/30/2023 19:08:09 12/30/19 24 12/30/2023 TSH W/REF SHAYLEE FT4 TSH with reflex free T4 1.370 uIU/m L 0.465- 4.680 Not Available [facility] (Lab) [address] [place], [address], 12/30/2023 19:36:23 12/30/19 24 12/30/2023 HEMOG LOBIN A1C HA1C 8.0 % 4.0-6. 0 high Diabe sheyla Geronimoe leonela Musate fernando: <5.7% Consi stent with absen ce of diabe sheyla 5.7-6 .4% Consi stent with incre ased risk for diabe sheyla (pred iabet es) >OR=6 .5% Consi stent with diabe sheyla REFER ENCE: Diabe sheyla Care 2016, 39(Peña ppl.1 ):s13 -s22 Not Available [facility] (Lab) [address] [place], [address], 12/30/2023 21:31:06 12/30/19 24 01/02/2024 MICRO ALBUM IN RANDO M URINE microalbumin , urine <6.0 mg/L 0.0-16 .6 Not Available [facility] (Lab) [address] [place], [address], 01/02/2024 17:14:13 12/30/19 24 01/02/2024 VITAM IN D 25-HY DROXY [id number] 44.5 NG/mL 30-100 Vitam in D Statu s: Defic ient: <20 ng/mL Insuf ficie nt: 20-29 ng/mL Suffi cient : 30-10 0 ng/mL Not Available [facility] (Lab) [address] [place], [address], 01/02/2024 21:36:30 07/06/20 24 07/06/2024 CBC/C OMPLE TE BLD COUNT W/DIF F white blood cells 6.4 x10'3 /uL 4.2-10 .8 Not Available [facility] (Lab) [address] [place], [address], 07/06/2024 14:18:41 07/06/20 24 07/06/2024 CBC/C OMPLE TE BLD COUNT W/DIF F red blood cells 5.92 x10'6 /uL 4.10-5 .80 high Not Available [facility] (Lab) [address] [place], [address], 07/06/2024 14:18:41 07/06/20 24 07/06/2024 CBC/C OMPLE TE BLD COUNT W/DIF F hemoglobin 17.3 g/dL 13.2-1 7.0 high Not Available [facility] (Lab) [address] [facility] [place], [address], 07/06/2024 14:18:41 07/06/2007/06/2024 CBC/C OMPLE TE BLD COUNT W/DIF F hematocrit 50.7 % 39.3-5 0.0 high Not Available [facility] (Lab) [address] [place], [address], 07/06/2024 14:18:41 07/06/2007/06/2024 CBC/C OMPLE TE BLD COUNT W/DIF F mean red cell volume 85.6 fL 80.0-9 7.0 Not Available [facility] (Lab) [address] [place], [address], 07/06/2024 14:18:41 07/06/2007/06/2024 CBC/C OMPLE TE BLD COUNT W/DIF F mean red cell hemoglobin 29.2 pg 27.0-3 3.0 Not Available [facility] (Lab) [address] [place], [address], 07/06/2024 14:18:41 07/06/2007/06/2024 CBC/C OMPLE TE BLD COUNT W/DIF F mean RBC HGB concentratio n 34.1 g/dL 31.0-3 6.0 Not Available [facility] (Lab) [address] [place], [address], 07/06/2024 14:18:41 07/06/20 24 07/06/2024 CBC/C OMPLE TE BLD COUNT W/DIF F red cell distribution width 12.0 % 11.8-1 5.5 Not Available [facility] (Lab) [address] [place], [address], 07/06/2024 14:18:41 07/06/20 24 07/06/2024 CBC/C OMPLE TE BLD COUNT W/DIF F platelets 273 x10'3 /uL 150-40 0 Not Available [facility] (Lab) [address] [place], [address], 07/06/2024 14:18:41 07/06/20 24 07/06/2024 CBC/C OMPLE TE BLD COUNT W/DIF F mean platelet volume 9.5 fL 9.0-12 .4 Not Available [facility] (Lab) [address] [place], [address], 07/06/2024 14:18:41 07/06/20 24 07/06/2024 CBC/C OMPLE TE BLD COUNT W/DIF F neutrophils 60.5 % 39.0-7 2.0 Not Available [facility] (Lab) [address] [place], [address], 07/06/2024 14:18:41 07/06/20 24 07/06/2024 CBC/C OMPLE TE BLD COUNT W/DIF F lymphocytes 30.3 % 16.0-4 7.0 Not Available [facility] (Lab) [address] [place], [address], 07/06/2024 14:18:41 07/06/20 24 07/06/2024 CBC/C OMPLE TE BLD COUNT W/DIF F monocytes 6.9 % 5.0-12 .0 Not Available [facility] (Lab) [address] [place], [address], 07/06/2024 14:18:41 07/06/20 24 07/06/2024 CBC/C OMPLE TE BLD COUNT W/DIF F eosinophils 0.9 % 1.0-7. 0 low Not Available [facility] (Lab) [address] [place], [address], 07/06/2024 14:18:41 07/06/20 24 07/06/2024 CBC/C OMPLE TE BLD COUNT W/DIF F basophils 1.2 % 0.0-2. 0 Not Available [facility] (Lab) [address] [place], [address], 07/06/2024 14:18:41 07/06/20 24 07/06/2024 CBC/C OMPLE TE BLD COUNT W/DIF F immature granulocytes 0.2 % 0.00-0 .50 Not Available [facility] (Lab) [address] [place], [address], 07/06/2024 14:18:41 07/06/20 24 07/06/2024 CBC/C OMPLE TE BLD COUNT W/DIF F neutrophils, absolute count 3.88 x10'3 /uL 1.5-8. 0 Not Available [facility] (Lab) [address] [place], [place], [address], 07/06/2024 14:18:41 07/06/20 24 07/06/2024 CBC/C OMPLE TE BLD COUNT W/DIF F lymphocytes, absolute count 1.94 x10'3 /uL 1.07-3 .43 Not Available [facility] (Lab) [address] [place], [address], 07/06/2024 14:18:41 07/06/20 24 07/06/2024 CBC/C OMPLE TE BLD COUNT W/DIF F monocytes, absolute count 0.44 x10'3 /uL 0.29-0 .99 Not Available [facility] (Lab) [address] [place], [address], 07/06/2024 14:18:41 07/06/20 24 07/06/2024 CBC/C OMPLE TE BLD COUNT W/DIF F eosinophils, absolute count 0.06 x10'3 /uL 0.02-0 .53 Not Available [facility] (Lab) [address] [place], [address], 07/06/2024 14:18:41 07/06/20 24 07/06/2024 CBC/C OMPLE TE BLD COUNT W/DIF F basophils, absolute count 0.08 x10'3 /uL 0.01-0 .08 Not Available [facility] (Lab) [address] [place], [address], 07/06/2024 14:18:41 07/06/20 24 07/06/2024 CBC/C OMPLE TE BLD COUNT W/DIF F immature granulocytes ,absolute 0.01 x10'3 /uL 0.00-0 .05 Not Available [facility] (Lab) [address] [place], [address], 07/06/2024 14:18:41 07/06/20 24 07/06/2024 CBC/C OMPLE TE BLD COUNT W/DIF F nucleated red blood cells 0.0 % -0 Not Available [facility] (Lab) [address] [place], [address], 07/06/2024 14:18:41 07/06/20 24 07/06/2024 CBC/C OMPLE TE BLD COUNT W/DIF F NRBC# 0.00 x10'3 /uL Not Available [facility] (Lab) [address] [place], [address], 07/06/2024 14:18:41 07/06/20 24 07/06/2024 LIPID PANEL cholesterol 218 mg/dL 140-19 9 high NIH ARACELI NSUS RECOM MENDA TION FOR SIRENA STERO L: ADULT CHILD LOW RISK: <200 <170 BORDE RLINE : <200- 239 ----- HIGH RISK: >240 >200 Not Available [facility] (Lab) [address] [place], [address], 07/06/2024 15:48:24 07/06/20 24 07/06/2024 LIPID PANEL triglyceride s 66 mg/dL 0-150 NIH ARACELI NSUS REPOR T RECOM MENDA TION FOR TRIGL YCERI JOY: ADULT CHILD LOW RISK: <150 ----- BODER LINE: 150-1 99 ----- HIGH RISK: >200 ----- Not Available [facility] (Lab) [address] [place], [address], 07/06/2024 15:48:24 07/06/20 24 07/06/2024 LIPID PANEL HDL cholesterol 53 mg/dL 40- Not Available [facility] (Lab) [address] [place], [address], 07/06/2024 15:48:24 07/06/20 24 07/06/2024 LIPID PANEL LDL cholesterol, calculated 152 mg/dL 0-130 high NIH ARACELI NSUS REPOR T RECOM MENDA TIONS FOR LDL: ADULT CHILD LOW RISK <130 <110 (OPTI MAL LDL) <100 ----- BORDE RLINE : 130-1 59 ----- HIGH RISK: >160 >130 A TRIGL YCERI DE RESUL T >400 INVAL IDATE S THE CALCU LATIO N FOR LDL FRACT IONAT ION - THE LDL RESUL T WILL NOT BE REPOR HAYDER. Not Available [facility] (Lab) [address] [place], [address], 07/06/2024 15:48:24 07/06/20 24 07/06/2024 COMPR EHENS MERON METAB OLIC PANEL sodium 132 mmol/ L 137-14 5 low Not Available [facility] (Lab) [address] [place], [address], 07/06/2024 15:48:28 07/06/20 24 07/06/2024 COMPR EHENS MERON METAB OLIC PANEL potassium 4.5 mmol/ L 3.5-5. 1 Not Available [facility] (Lab) [address] [place], [address], 07/06/2024 15:48:28 07/06/20 24 07/06/2024 COMPR EHENS MERON METAB OLIC PANEL chloride 99 mmol/ L 98-107 Not Available [facility] (Lab) [address] [place], [address], 07/06/2024 15:48:28 07/06/20 24 07/06/2024 COMPR EHENS MERON METAB OLIC PANEL carbon dioxide 27 mmol/ L 22-30 Not Available [facility] (Lab) [address] [place], [address], 07/06/2024 15:48:28 07/06/20 24 07/06/2024 COMPR EHENS MERON METAB OLIC PANEL anion gap 10.5 mmol/ L 14-22 low Not Available [facility] (Lab) [address] [place], [address], 07/06/2024 15:48:28 07/06/20 24 07/06/2024 COMPR EHENS MERON METAB OLIC PANEL glucose 125 mg/dL 70-99 high Not Available [facility] (Lab) [address] [place], [address], 07/06/2024 15:48:28 07/06/20 24 07/06/2024 COMPR EHENS MERON METAB OLIC PANEL BUN 17 mg/dL 8-19 Not Available [facility] (Lab) [address] [place], [address], 07/06/2024 15:48:28 07/06/20 24 07/06/2024 COMPR EHENS MERON METAB OLIC PANEL creatinine 1.15 mg/dL 0.66-1 .25 Not Available [facility] (Lab) [address] [place], [address], 07/06/2024 15:48:28 07/06/20 24 07/06/2024 COMPR EHENS MERON METAB OLIC PANEL GFR >60 Refer ence Range : Bent ge GFR Healt hy Adult : >60 mL/mi n/1.7 3 m2 Chron ic Kidne y Disea se: 15-60 mL/mi n/1.7 3 m2 Kidne y Failu re: <15/m L/min /1.73 m2 www.n iddk. nih.g ov The MDRD study equat ion has not been valid ated in child natividad <18 years of age; pregn ant women ; the elder ly >85 years of age; or in some racia l or ethni c subgr oups, such as Delores nics. Outsi de the valid ated rosalinda eters , estim ated GFR is less accur ate, requi ring clini andrea judgm ent on a case- by-ca se basis . Clini andrea inter preta tion for other races and ages must be made by the clini javy. The MDRD study equat ion has not been valid ated for the evalu ation of serum creat inine relat ed to nutri constanza l statu s or medic ation usage . For perso ns <18 years of age, a pedia tric GFR calcu lator is avail able on the [facility] websi te: https :[email or web address] vyas.o rg/pr ofess ional s/kdo qi/gf r_cal culat or Not Available [facility] (Lab) [address] [place], [address], 07/06/2024 15:48:28 07/06/20 24 07/06/2024 COMPR EHENS MERON METAB OLIC PANEL alkaline phosphatase 52 U/L 38-126 Not Available [facility] (Lab) [address] [place], [address], 07/06/2024 15:48:28 07/06/20 24 07/06/2024 COMPR EHENS MERON METAB OLIC PANEL alanine aminotransfe rase 32 U/L 0-50 Not Available [facility] (Lab) [address] [place], [address], 07/06/2024 15:48:28 07/06/20 24 07/06/2024 COMPR EHENS MERON METAB OLIC PANEL aspartate aminotransfe rase 30 U/L 15-46 Not Available [facility] (Lab) [address] [place], [address], 07/06/2024 15:48:28 07/06/20 24 07/06/2024 COMPR EHENS MERON METAB OLIC PANEL bilirubin, total 0.50 mg/dL 0.20-1 .30 Not Available [facility] (Lab) [address] [place], [address], 07/06/2024 15:48:28 07/06/20 24 07/06/2024 COMPR EHENS MERON METAB OLIC PANEL calcium 9.5 mg/dL 8.4-10 .2 Not Available [facility] (Lab) [address] [place], [address], 07/06/2024 15:48:28 07/06/20 24 07/06/2024 COMPR EHENS MERON METAB OLIC PANEL total protein 6.5 g/dL 6.3-8. 2 Not Available [facility] (Lab) [address] [place], [address], 07/06/2024 15:48:28 07/06/20 24 07/06/2024 COMPR EHENS MERON METAB OLIC PANEL albumin 4.4 g/dL 3.4-5. 0 Not Available [facility] (Lab) [address] [place], [address], 07/06/2024 15:48:28 07/06/20 24 07/06/2024 COMPR EHENS MERON METAB OLIC PANEL globulin 2.1 g/dL 2.6-4. 2 low Not Available [facility] (Lab) [address] [place], [address], 07/06/2024 15:48:28 07/06/20 24 07/06/2024 COMPR EHENS MERON METAB OLIC PANEL A/G ratio 2.1 ratio 1.0-2. 0 high Not Available [facility] (Lab) [address] [place], [address], 07/06/2024 15:48:28 07/06/20 24 07/06/2024 VITAM IN D 25-HY DROXY vd25oh 43.9 NG/mL 30-100 Vitam in D Statu s: Defic ient: <20 ng/mL Insuf ficie nt: 20-29 ng/mL Suffi cient : 30-10 0 ng/mL Not Available [facility] (Lab) [address] [place], [address], 07/06/2024 16:19:41 07/06/20 24 07/06/2024 TSH W/REF SHAYLEE FT4 TSH with reflex free T4 2.200 uIU/m L 0.465- 4.680 Not Available [facility] (Lab) [address] [place], [address], 07/06/2024 16:23:54 07/06/20 24 07/06/2024 PSA SCREE N PSA medicare screen 0.24 NG/mL 0.00-4 .00 Not Available [facility] (Lab) [address] [place], [address], 07/06/2024 16:23:59 07/06/20 24 07/06/2024 HEMOG LOBIN A1C HA1C 8.5 % 4.0-6. 0 high Diabe sheyla Scree leonela Crite fernando: <5.7% Consi stent with absen ce of diabe sheyla 5.7-6 .4% Consi stent with incre ased risk for diabe sheyla (pred iabet es) >OR=6 .5% Consi stent with diabe sheyla REFER ENCE: Diabe sheyla Care 2016, 39(Peña ppl.1 ):s13 -s22 Not Available [facility] (Lab) [address], [place], [address], 07/06/2024 21:16:24 Result Notes None recorded. Problems Name Problem SNOMED Code Status Onset Date Resolution Date Notes Provider Name and Address Organization Details Recorded Time Hypercholeste rolemia 17092786 Active 2019 Not Available [facility] 3 02:30:53 Diabetes mellitus 10105731 Active 2019 Not Available [facility] 3 02:30:53 Dystrophia unguium 55758353 Active 2019 Not Available [facility] 3 02:30:53 Hyperlipidemi a 47379461 Active 2022 Barry mcnulty MD [address], [address] , [employer] [facility] [employer] 3 08:56:53 Essential hypertension 65462089 Active 2022 Barry mcnulty MD [address], [address] , [employer] [facility] [employer] 3 08:56:56 Type 1 diabetes mellitus 00216732 Active 2022 Barry mcnulty MD [address], [place], [address] , [employer] [facility] [employer] 3 08:57:07 Seasonal allergic rhinitis 072277510 Active 2022 Barry mcnulty MD [address], [address] , [employer] [facility] [employer] [facility] 3 08:57:22 Eczema 75498862 Active 2022 Barry mcnulty MD [address], [address] , [facility] 3 08:57:28 Vitamin D deficiency 32754346 Active 2022 Barry mcnulty MD [address], [address], [address] , [facility] 3 09:01:32 Erectile dysfunction 167888523 Active 2023 Barry mcnulty MD [address], [address], [address] , [facility] 4 17:20:41 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 2023 Barry mcnulty MD [address], [address], [address] , [facility] 4 18:54:12 Folliculitis 38412720 Active 2023 Barry mcnulty MD [address], [address], [address] , [facility] 4 17:40:11 Erythrocytosi s 310044787 Active 2023 Barry mcnulty MD [address], [address], [address] , [facility] 4 17:23:03 Cough 30881744 Active 2024 Peter Armstrong CMA null, [facility] 5 10:08:21 Acquired trigger finger 8971775 Active 2024 Barry mcnulty MD [address], [address], [address] , [facility] 5 17:17:33 Problem Notes None recorded. Medical Equipment None Reported. Allergies No known drug allergies Medications Name Sig Start Date Stop Date Status Note LastModified by Organization Details LastModified Time atorvastati n 40 mg tablet TAKE 1 TABLET BY MOUTH EVERY DAY active Not Available Not Available No t Available prednisone 10 mg tablet TAKE 3 TABLETS BY MOUTH ONCE DAILY FOR TMJ PAIN 09/01 completed Not Available Not Available Not Available sildenafil 50 mg tablet Take 1 tablet twice a week by oral route as needed for 90 days. active Not Available Not Available No t Available cetirizine 10 mg tablet TAKE 1 TABLET BY MOUTH DAILY NEEDED active Not Available Not Available No t Available atorvastati n 10 mg tablet Take 1 tablet every day by oral route. 07/10 completed Not Available Not Available Not Available meloxicam 15 mg tablet 06/24 completed Not Available Not Available Not Available Lantus U-100 Insulin 100 unit/mL subcutaneou s solution Inject 70 units every day by sub-q route for 90 days. 12/07 completed Not Available Not Available Not Available sulfamethox azole 800 mg-trimetho prim 160 mg tablet TAKE 1 TABLET BY MOUTH TWICE DAILY FOR 7 DAYS 07/04 completed Not Available Not Available Not Available peg-electro lyte solution 420 gram oral solution 12/07 completed Not Available Not Available Not Available aspirin 81 mg tablet,leigh ann yed release Take 1 tablet every day by oral route. active Not Available Not Available No t Available amoxicillin 500 mg tablet TAKE 2 TABLETS BY MOUTH IMMEDIATE LY THEN 1 TABLET EVERY 8 HOURS UNTIL ALL TAKEN 07/04 completed Not Available Not Available Not Available cyproheptad ine 4 mg tablet TAKE 1 TABLET BY MOUTH TWICE A DAY FOR 10 DAYS-TAKE ONLY NEEDED, UNTIL DIRECTED TO STOP 09/01 completed Not Available Not Available Not Available betamethaso ne valerate 0.1 % topical cream APPLY TO AFFECTED AREA TWICE A DAY NEEDED 06/24 completed Not Available Not Available Not Available Humalog U-100 Insulin 100 unit/mL subcutaneou s solution INJECT UNDER THE SKIN THREE TIMES DAILY WITH MEALS PER SLIDING SCALE. USE UP TO 100 UNITS PER DAY active Not Available Not Available No t Available Kenalog 10 mg/mL suspension for injection In office injection administe red by the provider 12/[address] [facility]: 0003- [id number] Not Available Not Available Not Available benzonatate 100 mg capsule Take 1 capsule 3 times a day by oral route for 7 days. active Not Available Not Available No t Available cephalexin 500 mg capsule Take 1 capsule twice a day by oral route for 7 days. 10/11 completed Not Available Not Available Not Available prednisone 50 mg tablet TAKE 1 TABLET BY MOUTH EVERY DAY FOR 7 DAYS 06/24 completed Not Available Not Available Not Available montelukast 10 mg tablet Take 1 tablet every day by oral route for 90 days. 01/02 completed Not Available Not Available Not Available ergocalcife rol (vitamin D2) 1,250 mcg (50,000 unit) capsule TAKE 1 CAPSULE BY MOUTH 1 TIME A WEEK active Not Available Not Available No t Available methylpredn isolone 4 mg tablets in a dose pack TAKE 6 TABLETS ON DAY 1 DIRECTED ON PACKAGE AND DECREASE BY 1 TAB EACH DAY FOR A TOTAL OF 6 DAYS 06/24 completed Not Available Not Available Not Available Laxative (bisacodyl) 5 mg tablet 12/07 completed Not Available Not Available Not Available olmesartan 20 mg-hydrochl orothiazide 12.5 mg tablet Take 1 tablet every day by oral route. active Not Available Not Available No t Available atorvastati n 08/07 completed Not Available Not Available Not Available Lantuss-For te 12/07 completed Not Available Not Available Not Available olmesartan 08/07 completed Not Available Not Available Not Available BD Insulin Syringe 01/02 completed Not Available Not Available Not Available lidocaine (PF) 10 mg/mL (1 %) injection solution In office injection administe red by the provider 12/[address] [facility]: 0409- 4276- 17 Not Available Not Available Not Available BD Insulin Syringe Ultra-Fine 1 mL 30 gauge x 1/2 USE WITH INSULIN INJECTION S FOUR TIMES DAILY active Not Available Not Available No t Available BD Insulin Syringe Ultra-Fine 0.5 mL 30 gauge x 1/2 USE WITH INSULIN INJECTION S FOUR TIMES DAILY active Not Available Not Available No t Available Humalog KwikPen Insulin 08/07 completed Not Available Not Available Not Available OneTouch Verio test strips USE TO TEST FIVE TIMES DAILY active Not Available Not Available No t Available Xiidra 5 % eye drops in a dropperette INSTILL 1 DROP IN BOTH EYES TWICE DAILY active Not Available Not Available No t Available Gvoke HypoPen 2-Pack 1 mg/0.2 mL subcutaneou s auto-inject or INJECT UNDER THE SKIN NEEDED FOR LOW BLOOD SUGARL LEVEL active Not Available Not Available No t Available FreeStyle Dagoberto 2 Sensor kit active Not Available Not Available N ot Available Afluria Qd 2019- (36 mos up)(PF)60 mcg (15 mcg x4)/0.5 mL IM syringe PHARMACY ADMINISTE RED 06/24 completed Not Available Not Available Not Available Semglee (insulin glargine-yf gn) 100 unit/mL subcutaneou s solution INJECT 100 UNITS UNDER THE SKIN DAILY active Not Available Not Available No t Available Flowflex COVID-19 Antigen Home Test kit 12/07 completed Not Available Not Available Not Available [employer] Dagoberto 3 Sensor device CHANGE EVERY 14 DAYS active Not Available Not Available No t Available Vitals Date Recorded Body height Body mass index (BMI) Body weight Body temperature Heart rate Oxygen saturation Oxygen saturation in Arterial blood by Pulse oximetry Systolic blood pressure Diastolic blood pressure Provider Name and Address Organization Details Last Updated DateTime 4 175.26 cm 31.6 kg/m2 32443.7 7 g 97.8 [degF] 92 /min 97 % 97 % 128 mm[Hg] 70 mm[Hg] Kiya Tavares MA [employer] 4 17:01:00 Date Recorded Body height Body mass index (BMI) Body weight Body temperature Heart rate Systolic blood pressure Diastolic blood pressure Provider Name and Address Organization Details Last Updated DateTime 4 175.26 cm 31.6 kg/m2 76605.7 7 g 97.7 [degF] 90 /min 126 mm[Hg] 70 mm[Hg] Sheryl Aaron [place] [employer] [facility] [employer] 4 17:14:11 Date Recorded Body height Body mass index (BMI) Body weight Body temperature Heart rate Systolic blood pressure Diastolic blood pressure Provider Name and Address Organization Details Last Updated DateTime 4 175.26 cm 31.5 kg/m2 35594.1 7 g 98 [degF] 84 /min 126 mm[Hg] 71 mm[Hg] Sheryl Aaron [place] [employer] [facility] [employer] 4 17:19:08 Date Recorded Body height Body mass index (BMI) Body weight Body temperature Heart rate Oxygen saturation Oxygen saturation in Arterial blood by Pulse oximetry Pain severity - 0-10 verbal numeric rating [Score] - Reported Systolic blood pressure Diastolic blood pressure Provider Name and Address Organization Details Last Updated DateTime 4 175.26 cm 32 kg/m2 68690.5 4 g 97.6 [degF] 88 /min 97 % 97 % 0 116 mm[Hg] 66 mm[Hg] Maria Elena Patricio MA [facility] [employer] [facility] 4 17:09:45 Date Recorded Body height Body mass index (BMI) Body weight Body temperature Heart rate Oxygen saturation Oxygen saturation in Arterial blood by Pulse oximetry Pain severity - 0-10 verbal numeric rating [Score] - Reported Systolic blood pressure Diastolic blood pressure Provider Name and Address Organization Details Last Updated DateTime 5 175.26 cm 31.9 kg/m2 49704.9 5 g 98.2 [degF] 97 /min 98 % 98 % 0 122 mm[Hg] 64 mm[Hg] Maria Elena Patricio MA [facility] [employer] [facility] 5 17:05:15 Social History Question Answer Notes LastModified by Respiratory Motionizat ion Details LastModified Time Tobacco Smoking Status Never Smoker TONY [place], [facility] [employer] [facility] 12/07/2022 17:00:42 Do You Have An Advance Directive? No [id number] Information not available 10/27/2022 What Is Your Level Of Alcohol Consumption? None [id number] Information not available 10/27/2022 What Is Your Level Of Caffeine Consumption? Occasional [id number] Information not available 10/27/2022 In The 14 Days Before Symptom Onset, Have You Had Close Contact With A Laboratory-confi rmed COVID-19 While That Case Was Ill? No [email or web address] Information not available 12/07/2022 In The 14 Days Before Symptom Onset, Have You Had Close Contact With A Person Who Is Under Investigation For COVID-19 While That Person Was Ill? No [email or web address] Information not available 12/07/2022 Are You Currently Employed? Yes Information not available 12/07/2022 What Type Of Diet Are You Following? REGULAR [id number] Information not available 10/27/2022 What Is The Highest Grade Or Level Of School You Have Completed Or The Highest Degree You Have Received? [id number] [email or web address] Information not available 12/07/2022 What Is Your Occupation? [employer] [email or web address] Information not available 12/07/2022 Have There Been Any Changes To Your Family Or Social Situation? No [email or web address] Information not available 12/07/2022 Do You Use Insect Repellent Routinely? Yes [email or web address] Information not available 12/07/2022 Where Do You Live? SingleLevelHouse [email or web address] Information not available 12/07/2022 Do You Have A Medical Power Of Nurse Coordinator? No [email or web address] Information not available 12/07/2022 What Was The Date Of Your Most Recent Tobacco Screening? 10/11/2024 Information not available 10/11/2024 What Is Your Relationship Status? [id number] Information not available 10/27/2022 Do You Use Your Seat Belt Or Car Seat Routinely? Yes Information not available 10/11/2024 Do You Have Smoke And Carbon Monoxide Detectors In Your Home? Yes [email or web address] Information not available 12/07/2022 Are You Passively Exposed To Smoke? No [email or web address] Information not available 12/07/2022 Are There Any Smokers In Your House? No Information not available 12/07/2022 Do You Feel Stressed (tense, Restless, Nervous, Or Anxious, Or Unable To Sleep At Night)? [id number] [email or web address] Information not available 12/07/2022 Do You Use Any Illicit Or Recreational Drugs? No [email or web address] Information not available 12/07/2022 Do You Use Sunscreen Routinely? Yes [email or web address] Information not available 12/07/2022 Has Tobacco Cessation Counseling Been Provided? No N/a Information not available 12/07/2022 Have You Recently Traveled Abroad? No [email or web address] Information not available 12/07/2022 Do You Have Any Dietary Restrictions? No [email or web address] Information not available 12/07/2022 Do You Or Have You Ever Used Any Other Forms Of Tobacco Or Nicotine? No Information not available 12/07/2022 Sex: Male Functional Status None recorded. Mental Status None recorded. Family History Relationship Description Onset Age of this Age Resolved Age Notes LastModified by Organization Details LastModified Time Father Deep venous thrombosis [email or web address] Not available 17:00:53 Father Diabetes mellitus Not available 2022 17:09:44 Father Hypertensive disorder Not available 2022 17:10:07 Mother Deep venous thrombosis Not available 17:00:53 Mother Hypertensive disorder Not available 2022 17:10:07 Daughter Diabetes mellitus type 1 Not available 2022 17:09:44 Medical History Condition Response NERVE DISEASE N BLINDNESS N RHEUMATIC FEVER N KIDNEY STONES N BLADDER PROBLEMS N MRSA N OTHER # 1 N POLIO N LUNG DISEASE/DISORDER N HISTORY OF DRUG ABUSE N RADIATION / CHEMOTHERAPY N COPD N Other # 2 N BLOOD DISEASES N EAR OR HEARING PROBLEMS N MUMPS N SHINGLES N BOWEL PROBLEMS N DEPRESSION (INCLUDING POST ) N FAILED BACK SYNDROME N STROKE/TIA N ULCERS N BENIGN PROSTATIC HYPERPLASIA N MEASLES N HYPOTENSION N MYOCARDIAL INFARCTION N OBESITY N GERD/NAUSEA N ANEURYSM N URINARY/BLADDER/KIDNEY PROBLEMS N CORONARY ARTERY DISEASE (CAD) N Do you have Advance directive? N ADDICTION CONCERNS N ENDOMETRIOSIS N Impotence N USE OF BLOOD THINNERS N SKIN PROBLEMS N GASTROINTESTINAL DISORDER N PERIPHERAL VASCULAR DISEASE N MUSCLE,JOINT OR BONE PROBLEMS N GASTROINTESTINAL BLEEDING N BLOOD CLOTS N ASTHMA N Abdominal Pain N CATARACTS N ARTERIAL INSUFFICIENCY N ERECTILE DYSFUNCTION N VARICOSITIES N GI PROBLEMS N Low Testosterone N INFERTILITY N AIDS/HIV N CHEMOTHERAPY / RADIATION N LIVER DISEASE N MALE HYPOGONADISM N HYPERTENSION Y Deficiency Y TOURETTE'S N ANXIETY DISORDER N BLOOD TRANSFUSION N ANEMIA/BLOOD DISORDER N CHRONIC EAR INFECTIONS N TUBERCULOSIS N GLAUCOMA N FOOT PROBLEM N DIVERTICULITIS N CHICKENPOX N SLEEP APNEA N BACK INJECTIONS N ALLERGIES/HAYFEVER N INFECTIOUS DISEASE N HEART ARRHYTHMIA N PROSTATE N ESRD N INSOMNIA N HIGH CHOLESTEROL / HYPERLIPIDEMIA Y HYPERTHYROIDISM N EYE PROBLEMS N PVD N EDEMA N CHRONIC PAIN SYNDROME N HYPOTHYROIDISM N CONSTIPATION N CAROTID BLOCKAGE N BACK / NECK PROBLEMS N ATHEROSCLEROSIS N BREAST PROBLEMS N DIALYSIS N POLYCYSTIC OVARIES N ECZEMA N OSTEOPOROSIS N ARTHRITIS N APPENDICITIS N DIABETES, TYPE Y BAD TEETH N VON WILLIBRAND'S DISEASE N ENT N HEARTBURN / REFLUX N GI N AUTISM SPECTRUM DISORDER (ASD) N POST LAMINECTOMY SYNDROME N HEPATITIS / LIVER DISEASE N GOUT N SLEEP DISORDER N ALZHEIMER'S DISEASE N Brain Problems N HERPES N DEMENTIA N HEADACHES/MIGRAINES N SEIZURES/EPILEPSY N VASCULAR DISEASE N PACEMAKER N DIZZINESS N HEART DISEASE/HEART PROBLEMS N KIDNEY DISEASE N MULTIPLE SCLEROSIS N NEUROPSYCHOLOGICAL N CARDIAC ARRHYTHMIA N CANCER: SPECIFY N ATRIAL FIBRILLATION N Gall Stones N PULMONARY EMBOLISM N AUTOIMMUNE DISEASE N Immunizations Vaccine Type Date Status Note Provider Nam e and Address Organization Details Recorded Time Influenza, split virus, quadrivalent, PF 06/24/2022 completed Not Available [employer] 3 02:34:27 Past Encounters Encounter ID Performer Location Encounter Start Date Encounter Closed Date Diagnosis/Indication Diagnosis SNOMED-CT Code Diagnosis ICD10 Code Diagnosis Note [id number] [facility] Internal Med [address] [address] 06/24/2022 00:00:00 08/03/2022 16:18:44 [id number] Barry mcnulty MD [facility] Internal [address] [address] 12/07/2022 16:52:15 12/07/2022 17:30:24 Screening - NAD 693319196 Z13.9 C-scope: Did have this with Dr Meyers get the report Get yearly flu shotGet tdapGet COVID 19 vaccine and its boosters RTC in 4 months, do labs, ER if worse, he did verbalize his understand ing of the above Hyperlipidemia 14314525 E78.5 On rosuvastat in 10mg dailyDo labs Essential hypertension 51731708 I10 On olmesartan Type 1 raymond betes mellitus 73884901 E10.9 On humolog SSOn semglee (insulin glargine)O n olmesartan Dr Adrian Handy endoDr [facility] MDDr Tanisha Lucas Get labsWants his meds thru the endo Seasonal a llergic rhinitis 453490918 J30.2 On zyrtec Eczema 69707024 L30.9 On crypohepta dine PRNNeeds to see dermatolog y Dr Alvarado 07/29/2022 , f/u PRN Vitamin D deficiency 347 22314 E55.9 Is on vit d weekly, get vit d [id number] Barry mcnulty MD [facility] [place] [facility] [address] 1 09/01/2023 16:49:29 09/01/2023 17:23:21 Screening - NAD [id number] Z13.9 C-scope: 11/03/2022 : Dr Meyers, next in 10 years Get yearly flu shotGet tdapGet COVID 19 vaccine and its boostersGe t shingrix at age 48 years RTC in 4 months, do labs, ER if worse, he did verbalize his understand ing of the above Hyperlipidemia 33423979 E78.5 Not on rosuvastat in 10mg dailyOn atorvastat in 10mg daily, filled by Chuy Handy 08/19/2023 Do labs Essential hypertension 44212287 I10 On olmesartan -HCTZ 20-12.5mg daily, given by Mari Anthony NPGet labs Type 1 raymond betes mellitus 78140388 E10.9 On humolog SSOn semglee (insulin glargine)O n olmesartan Dr Adrian Handy endoDr [facility] MDDr Tanisha Lucas Get labsWants his meds thru the endo Seasonal a llergic rhinitis 597929995 J30.2 On zyrtec Eczema 88202168 L30.9 On crypohepta dine PRNOn cetrizineO n singulair given by Mari Anthony [employer] P[employer], renewed 09/01/2022 Needs to see dermatolog y Dr Alvarado 07/29/2022 , f/u PRN Vitamin D deficiency 347 47223 E55.9 Is on vit d weekly, get vit d Erectile dysfunction 860 489203 F52.21 Get on sildenafil as per his request as he states that his insurance does pay for this, advised on use and side effects [id number] Barry mcnulty MD [facility] [place] [facility] [address] [address] 01/03/2024 16:54:18 01/03/2024 17:40:49 Screening - NAD 123250107 Z13.9 C-scope: 11/03/2022 : Dr Meyers, next in 10 years Get yearly flu shotGet tdapGet COVID 19 vaccine and its boostersGe t shingrix vaccine RTC in 4 months, do labs, ER if worse, he did verbalize his understand ing of the above Hyperlipidemia 97594575 E78.5 Not on rosuvastat in 10mg dailyOn atorvastat in 10mg daily, filled by Chuy Handy 08/19/2023 Do labs Essential hypertension 26853632 I10 On olmesartan -HCTZ 20-12.5mg daily, given by Mari Anthony NPGet labs Type 1 raymond betes mellitus 74387635 E10.9 On humolog SSOn semglee (insulin glargine)O n olmesartan Dr Adrian Handy endoDr [facility] MDDr Tanisha Lance Get labsWants his meds thru the endo, sees Mari Anthony [employer] P[employer] last OV 11/07/2023 Seasonal a llergic rhinitis 495721227 J30.2 On zyrtec Eczema 53964589 L30.9 On crypohepta dine PRNOn cetrizineO n singulair given by Mari Anthony [employer] P[employer], renewed 09/01/2022 Needs to see dermatolog y Dr Alvarado 07/29/2022 , f/u PRN Vitamin D deficiency 347 93292 E55.9 Is on vit d weekly, get vit d Erectile dysfunction 860 741687 F52.21 On sildenafil does well at this time Hypoproteinemia 6822571 E88.09 Get a referral to Dr Almendarez Screening for malignant neoplasm of prostate 836198965 Z12.5 [id number] Barry mcnulty MD [facility] [place] [facility] [address] [facility] [address] [place] [address] 07/04/2024 17:01:56 07/04/2024 17:43:11 Folliculitis 76567502 L73.9 Was treated with bactrim but this did not resolve this, persisting redness and mildly tender, will start on cephalexin 500mg po bid for 7 daysAlso get a referral to Dr Beach if worse, he did verbalize his understand ing of the above [id number] Barry mcnulty MD [facility] Internal Med [facility] [address] [place] [address] 07/10/2024 16:55:54 07/10/2024 17:42:49 Screening - NAD 948641609 Z13.9 C-scope: 11/03/2022 : Dr Meyers, next in 10 years Get yearly flu shotGet tdapGet COVID 19 vaccine and its boostersGe t shingrix vaccine RTC in 3 months, do labs, ER if worse, he did verbalize his understand ing of the above Hyperlipidemia 64772244 E78.5 Not on rosuvastat in 10mg dailyOn atorvastat in 10mg daily, filled by Chuy Handy 08/19/2023 , will increase to 40mg daily 07/10/2024 Do labs Essential hypertension 19720914 I10 On olmesartan -HCTZ 20-12.5mg daily, given by Mari Anthony NPGet labs Type 1 raymond betes mellitus 31446380 E10.9 On humolog SSOn semglee (insulin glargine)O n olmesartan -HCTZ Dr Adrian Handy endoDr [facility] MDDr Tanisha Lucas Get labsWants his meds thru the endo, sees Mari Anthony [employer] PILOT last OV 11/07/2023 Seasonal a llergic rhinitis 396619842 J30.2 On zyrtec Eczema 75683493 L30.9 On crypohepta dine PRNOn cetrizineO n singulair given by Mari Anthony [employer]POR[employer] P[employer]OT, renewed 09/01/2022 Needs to see dermatolog y Dr Alvarado 07/29/2022 , f/u PRN Vitamin D deficiency 347 14249 E55.9 Is on vit d weekly, get vit d Erectile dysfunction 860 850492 F52.21 On sildenafil does well at this time Hypoproteinemia 4101509 E88.09 Get a referral to Dr Almendarez Erythrocytosis 390006068 D75.1 Needs to see hematology Folliculitis 38520544 L7 3.9 Was treated with bactrim but this did not resolve this, persisting redness and mildly tender, will start on cephalexin 500mg po bid for 7 daysAlso get a referral to Dr Von francis LackenER if worse, he did verbalize his understand ing of the above OV 07/10/2024 :Will repeat the cephalexin for 7 more days, as the follicular abscess is draining, also need to see G surgeon [id number] Barry mcnulty MD [facility] Internal Med [facility] [address] [place] [address] 10/11/2024 16:59:23 10/11/2024 17:38:01 Screening - NAD [id number] Z13.9 C-scope: 11/03/2022 : Dr Meyers, next in 10 years Get yearly flu shotGet tdapGet COVID 19 vaccine and its boostersGe t shingrix vaccine RTC in 3 months, do labs, ER if worse, he did verbalize his understand ing of the above Hyperlipidemia 26384006 E78.5 Not on rosuvastat in 10mg dailyOn atorvastat in 40mg dailyDo labs Essential hypertension 74145556 I10 On olmesartan -HCTZ 20-12.5mg daily, given by Mari Anthony NPGet labs Type 1 raymond betes mellitus 87881113 E10.9 On humolog SSOn semglee (insulin glargine)O n olmesartan -HCTZ Dr Adrian Handy endoDr [facility] MDDr Tanisha Lucas Get labsWants his meds thru the endo, sees aMri Anthony [employer]PORATE PILOT last OV 11/07/2023 Seasonal a llergic rhinitis 447392694 J30.2 On zyrtec Eczema 76452819 L30.9 On crypohepta dine PRNOn cetrizineO n singulair given by Mari Anthony [employer]POR[employer] PILOT, renewed 09/01/2022 Needs to see dermatolog y Dr Alvarado 07/29/2022 , f/u PRN Vitamin D deficiency 347 28263 E55.9 Is on vit d weekly, get vit d Erectile dysfunction 860 589502 F52.21 On sildenafil does well at this time Hypoproteinemia 1127393 E88.09 Get a referral to Dr Almendarez Erythrocytosis 331201105 D75.1 States that he does have an apt in 10/2024 Folliculitis 13772669 L7 3.9 Was treated with bactrim but this did not resolve this, persisting redness and mildly tender, will start on cephalexin 500mg po bid for 7 daysAlso get a referral to Dr Beach if worse, he did verbalize his understand ing of the above OV 07/10/2024 :Will repeat the cephalexin for 7 more days, as the follicular abscess is draining, also need to see G surgeon OV 10/11/2024 :Did see surgery 07/23/2024 , no surgery, advised it would heal on its own Dr Bhardwaj 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 Dr Aviles 06/26/2024 , s/p injection Health Concerns Section Related Observation LastModified by Organization Detai ls LastModified Time None Recorded Concern Status LastModified by Organization Details LastModified Time None Recorded Advance Directives Directive N: Payers Encounter Date Sequence Insurance Name Policy Number Policy Gaitan Covered Member ID Gaitan Member ID Guarantor Name 09/01/2023 1 [place] [id number] Felix Lion 01/03/2024 1 [place] [id number] Felix Lion 07/04/2024 1 [place] [id number] Felix Lion 07/10/2024 1 [place] [id number] Orlando Lion [id number] Felix Lion 10/11/2024 1 [place] [id number] A [id number] Felix Lion Notes Date Note Type Note Provider Name and Address Organization Details Recorded Time 09/01/2023 text/html OV 06/24/2022:He re to establish [facility] Hx:HLDHTNDMIHamida wed social family and surgical historyHere to discuss above and get labs OV 12/07/2022:Here for his f/u apt, he is doing well today, states that he did have labs done by Dr Ole navarro, also he did do the c-scope OV 09/01/2023: Here for his f/u apt, he is doing well today, needs to do labs, also has seen Dr Ole grady endo and his [employer]POR[employer] PILOT Barry Zacarias MD [address], [place], [address], [facility] [employer] [facility] [employer] [facility] 09/01/2023 17:29:13 01/03/2024 text/html OV 06/24/2022:He re to establish [facility] to discuss above and get labs OV 12/07/2022:Here for his f/u apt, he is doing well today, states that he did have labs done by Dr Ole grady endo, also he did do the c-scope OV 09/01/2023: Here for his f/u apt, he is doing well today, needs to do labs, also has seen Dr Ole grady endo and his CORPORATE PILOT OV 01/03/2024: Here for his f/u apt, he states that he is doing very well, states that he has felt the best in the past 2 years, he did do the labs Barry Zacarias MD [address], [facility] [address], [place], [address], [employer] [facility] 01/03/2024 18:24:18 07/04/2024 text/html OV 06/24/2022:He re to establish [facility] Hx:[facility] to discuss above and get labs OV 12/07/2022:Here for his f/u apt, he is doing well today, states that he did have labs done by Dr Ole grady endo, also he did do the c-scope OV 09/01/2023: Here for his f/u apt, he is doing well today, needs to do labs, also has seen Dr Ole grady endo and his CORPORATE PILOT OV 01/03/2024: Here for his f/u apt, he states that he is doing very well, states that he has felt the best in the past 2 years, he did do the labs OV 07/04/2024: ACVS/p 'insect bite' and now has swelling noted on the anterior abdomen, some pain, no d/c, no fevers or chills Barry Zacarias, MD [address], [place], [address], [facility] [employer] 07/04/2024 17:55:25 07/10/2024 text/html OV 06/24/2022:He re to establish carePast H[facility] family and surgical historyHere to discuss above and get labs OV 12/07/2022:Here for his f/u apt, he is doing well today, states that he did have labs done by Dr Ole grady endo, also he did do the c-scope OV 09/01/2023: Here for his f/u apt, he is doing well today, needs to do labs, also has seen Dr Ole grady endo and his CORPORATE PILOT OV 01/03/2024: Here for his f/u apt, he states that he is doing very well, states that he has felt the best in the past 2 years, he did do the labs OV 07/04/2024: ACVS/p 'insect bite' and now has swelling noted on the anterior abdomen, some pain, no d/c, no fevers or chills OV 07/10/2024: Here for his f/u apt, he is doing well, states that the folliculitis is much better but is now draining, no fevers or chillsHe did do the labs Barry Zacarias MD [address], [place], [address], [facility] [employer] [facility] 07/10/2024 17:49:59 10/11/2024 text/html OV 06/24/2022:He re to establish carePast Hx:[facility] family and surgical historyHere to discuss above and get labs OV 12/07/2022:Here for his f/u apt, he is doing well today, states that he did have labs done by Dr Ole grady endo, also he did do the c-scope OV 09/01/2023: Here for his f/u apt, he is doing well today, needs to do labs, also has seen Dr Ole grady endo and his CORPORATE PILOT OV 01/03/2024: Here for his f/u apt, he states that he is doing very well, states that he has felt the best in the past 2 years, he did do the labs OV 07/04/2024: ACVS/p 'insect bite' and now has swelling noted on the anterior abdomen, some pain, no d/c, no fevers or chills OV 07/10/2024: Here for his f/u apt, he is doing well, states that the folliculitis is much better but is now draining, no fevers or chillsHe did do the labs OV 10/11/2024: Here for his f/u apt, he is doing well today Barry Zacarias MD [address], [facility] [address], [place], [address], [place] [facility] [place] [employer] [facility] 10/11/2024 18:09:53
[2024-11-16 15:39] LABS: Basophils Absolute Auto 0.1 K/mm3 (0.0-0.1); Basophils Percent Auto 1.3 % (0.2-1.2); Eosinophils Absolute Auto 0.1 K/mm3 (0-0.3); Eosinophils Percent Auto 1.5 % (0-4.4); Hematocrit 44.4 % (42.0-52.0); Hemoglobin 15.3 g/dL (14.0-18.0); Immature Granulocyte Absolute 0.02 K/mm3 (0.00-0.031); Immature Granulocyte Percent A 0.3 % (0-0.5); Lymphocytes Percent Auto 29.9 % (18.3-44.2); Mean Corpuscular HGB Conc 34.5 g/dl (32-36); Mean Corpuscular Volume 84.3 fl (80-100); Mean Platelet Volume 9.6 fl (7.4-10.4); Monocytes Absolute Auto 0.6 K/mm3 (0.1-0.6); Monocytes Percent Auto 8.7 % (2.6-8.5); Neutrophils Absolute Auto 3.9 K/mm3 (1.3-6.7); Neutrophils Percent Auto 58.3 % (45.5-73.1); Platelet Count Result 254 k/mm3 (150-375); Red Blood Count 5.27 M/mm3 (4.6-6.20); Red Cell Distribution Width 12.2 % (11.5-14.5); White Blood Count 6.7 K/mm3 (4.5-10.0)
[2024-11-16 17:00] LABS: Alanine Aminotransferase 28 U/L (6-50); Albumin Level 3.8 g/dL (3.5-5.1); Alkaline Phosphatase 56 U/L (38-126); Anion Gap 8 mmol/L (4-12); Aspartate Amino Transferase 46 U/L (17-59); Bilirubin,Total 0.3 mg/dL (0.2-1.3); Blood Urea Nitrogen 20 mg/dL (9-20); Calcium 9.2 mg/dL (8.4-10.2); Carbon Dioxide 26 mmol/L (22-30); Chloride 101 mmol/L (98-107); Estimated Glomerular Filt Rate 59; Glucose 149 mg/dL (65-110); Sodium 135 mmol/L (137-145)
[2024-11-19 12:04] LABS: Kappa\\Lambda Light Chains 0.93 (0.26-1.65)
[2024-11-19 12:42] LABS: Protein, Total 5.7 g/dL (6.1-8.1)
[2024-11-19 16:30] LABS: Immunoglobulin A 106 mg/dL (70-400); Immunoglobulin G 560 mg/dL (700-1600); Immunoglobulin M 54 mg/dL (40-230)
[2024-11-19 20:39] LABS: Albumin 3.8 g/dL (3.8-4.8); Alpha 1 Globulin 0.3 g/dL (0.2-0.3); Alpha 2 Globulin 0.6 g/dL (0.5-0.9); Beta 1 Globulin 0.4 g/dL (0.4-0.6); Gamma Globulin 0.5 g/dL (0.8-1.7)
== END 2024-11-16 15:21 | disposition home or self-care (01) ==
LOC: ANHLAB 15:21
PROVIDERS: PCP Internal Medicine; Visit Provider Internal Medicine Hematology & Oncology
DX: D80.1 Nonfamilial hypogammaglobulinemia (principal)
CPT/HCPCS: 36415; 80053; 82784; 83883; 84155; 84165; 85025